=== PATIENT | female | born 1990 | race Caucasian/White ===

== ENCOUNTER 2017-08-22 07:05 | Day surgery (SDC) | payer OTHER ==
[2017-08-22] MEDS ORDERED: Ringers Lactate 1,000 ML IV ONE (07:24)
[2017-08-22] MEDS ORDERED: MIDAZOLAM HCL 2 MG/2 ML INJ ONE (08:35)
[2017-08-22] MEDS ORDERED: PROPOFOL 200 MG/20 ML VIAL IV ONE (08:46)
--- NOTE | 2017-08-22 09:05 | ENDO RPT ---
[address], [address] EGD PROCEDURE REPORT EXAM DATE: 08/22/2017 PATIENT NAME: Chantelle Ayala MR#: [id number] BIRTHDATE: 1990 ATTENDING: Joaquin Tian Dr STATUS: outpatient OPTIMIZATION ENGINEER: Robyn Bravo RN and Nona Gutierres INDICATIONS: The patient is a 26 yr old Female here for an EGD due to mid epigastric abdominal pain, nausea and vomiting, and GERD PROCEDURE PERFORMED: EGD with biopsy MEDICATIONS: Per Anesthesia. TOPICAL ANESTHETIC: none CONSENT: The patient understands the risks and benefits of the procedure and understands that these risks include, but are not limited to: sedation, allergic reaction, infection, perforation and/or bleeding. Alternative means of evaluation and treatment include, among others: physical exam, x-rays, and/or surgical intervention. The patient elects to proceed with this endoscopic procedure. DESCRIPTION OF PROCEDURE: During intra-op preparation period all mechanical medical equipment was checked for proper function. Hand hygiene and appropriate measures for infection prevention was taken. Procedure, possible complications, and alternatives including but not limited to the possibility of bleeding, perforation, tear, infection, sepsis, need for surgery, need for blood transfusion, and anesthesia related complications were explained to the patient. After the risks, benefits and alternatives of the procedure were thoroughly explained, Informed consent was verified, confirmed and timeout was successfully executed by the treatment team. The patient was placed in the left lateral position. The patient was anesthetized with topical anesthesia. Through the anesthetized oropharyngeal area, the scope was passed without any difficulty. The EG-[id number] ([id number]) endoscope was introduced through the mouth and advanced to the third portion of the duodenum. Retroflexed views revealed a small hiatal hernia. The gastroscope was then slowly withdrawn and removed. LA Class A esophagitis was found in the lower esophagus. A small hiatal hernia was found. Gastric biopsies obtained for non-ulcer dyspepsia. Small bowel biopsies obtained. ADVERSE EVENTS: There were no complications. IMPRESSIONS: 1. LA Class A esophagitis in the lower esophagus 2. Small slliding hiatal hernia 3. Gastric biopsies obtained for non-ulcer dyspepsia 4. Small bowel biopsies obtained RECOMMENDATIONS: 1. await biopsy results 2. acid suppression therapy 3. abdominal ultrasound 4. HIDA scan 5. check labs REPEAT EXAM: Joaquin Tian Dr eSigned: Joaquin Tian Dr 08/22/2017 9:05 AM cc: CPT CODES: ICD9 CODES: PATIENT NAME: Chantelle AyalaMateo MR#: [id number]
[2017-08-22 09:35] LABS: Absolute Monocytes 0.4 K/uL (0.1-1.3); Absolute Neutrophil 4.1 K/uL (1.8-8.0); Basophils % 0.3 % (0-1.3); Eosinophils % 3.4 % (0-4.4); Hematocrit 39.2 % (36.0-45.0); Lymphocytes % 29.8 % (15.3-44.8); MCV 89.4 fL (80-100); MPV 7.5 fL (7.6-11.3); Monocytes % 6.3 % (3.3-12.3); RBC Red Blood Cell Count 4.39 M/uL (3.86-4.86)
[2017-08-22 09:52] LABS: Bicarbonate 25 mEq/L (21-31); Glucose Level 102 mg/dL (65-120); Potassium 3.7 mEq/L (3.6-5.0); Sodium Level 136 mEq/L (135-145)
[2017-08-22 09:56] LABS: ALT/SGPT 21 IU/L (10-60); AST/SGOT 20 IU/L (10-42); Alkaline Phosphatase 77 IU/L (42-121); Amylase Level 72 U/L (28-100); BUN Blood Urea Nitrogen 11 mg/dL (6-20); Bilirubin Total 0.8 mg/dL (0.3-1.2); Protein, Total 7.3 g/dL (6.0-8.3)
[2017-08-22 10:17] LABS: Lipase 34 U/L (22-51)
--- NOTE | 2017-08-22 11:01 | RAD REPORT ---
EXAM DESCRIPTION: US - Abdomen Exam Complete - 08/22/2017 9:57 am CLINICAL HISTORY: Abdominal pain. COMPARISON: None. FINDINGS: The liver is normal in size, shape and echotexture. No focal liver lesions or intrahepatic biliary dilatation is seen. The gallbladder demonstrates no gallstones, pericholecystic fluid or gallbladder wall thickening. Co mmon bile duct is normal in caliber measuring 3 mm. Both kidneys are normal in size, shape and echotexture. No hydronephrosis, focal lesion of concern or perinephric fluid. The spleen is normal in size measuring 8 cm. The pancreas and aorta are obscured by bowel gas. IMPRESSION: Unremarkable study except for limited assessment of the pancreas and aorta due to bowel gas.
== END 2017-08-22 10:15 | disposition home or self-care (01) ==
LOC: ENDO 07:05
PROVIDERS: ATTEND Internal Medicine Gastroenterology
PROC: 0DB88ZX Excision of Small Intestine, Via Natural or Artificial Opening Endoscopic, Diagnostic (ICD-10-PCS; 2017-08-22)
PROC: 0DB68ZX Excision of Stomach, Via Natural or Artificial Opening Endoscopic, Diagnostic (ICD-10-PCS; principal; 2017-08-22 08:30)
DX: K29.50 Unspecified chronic gastritis without bleeding (principal); K21.0 Gastro-esophageal reflux disease with esophagitis; K44.9 Diaphragmatic hernia without obstruction or gangrene; Z80.3 Family history of malignant neoplasm of breast; Z80.1 Family history of malignant neoplasm of trachea, bronchus and lung
CPT/HCPCS: 36415; 76700; 80053; 81025; 82150; 83690; 85025; 85652; 88305; 88312; J2250

== ENCOUNTER 2017-09-10 00:28 | Emergency (ER) | payer OTHER ==
[2017-09-10] MEDS ORDERED: NA CHLORIDE 0.9% 1,000 ML ONE ×2 (00:58→04:35)
[2017-09-10] MEDS ORDERED: MEPERIDINE HCL 50 MG/ML AMP ONE (00:58)
[2017-09-10] MEDS ORDERED: PROMETHAZINE 25 MG/ML VIAL ONE (00:58)
[2017-09-10 01:06] LABS: Absolute Lymphocytes (CBC) 3.4 K/uL (0.7-4.9); Absolute Monocytes 0.8 K/uL (0.1-1.3); Absolute Neutrophil 4.6 K/uL (1.8-8.0); Basophils % 0.5 % (0-1.3); Hematocrit 40.2 % (36.0-45.0); Lymphocytes % 37.5 % (15.3-44.8); MCH 29.9 pg (27.0-35.0); MCV 89.1 fL (80-100); MPV 7.7 fL (7.6-11.3); Monocytes % 8.3 % (3.3-12.3); RBC Red Blood Cell Count 4.51 M/uL (3.86-4.86)
[2017-09-10 01:13] LABS: Bicarbonate 25 mEq/L (21-31); Glucose Level 100 mg/dL (65-120); Lipase 40 U/L (22-51); Potassium 3.5 mEq/L (3.6-5.0); Sodium Level 138 mEq/L (135-145)
[2017-09-10 01:19] LABS: ALT/SGPT 22 IU/L (10-60); AST/SGOT 24 IU/L (10-42); Albumin 4.1 g/dL (3.2-5.5); Alkaline Phosphatase 76 IU/L (42-121); Amylase Level 70 U/L (28-100); BUN Blood Urea Nitrogen 10 mg/dL (6-20); Bilirubin Direct 0.1 mg/dL (0-0.2); Bilirubin Total 0.3 mg/dL (0.3-1.2); Protein, Total 7.7 g/dL (6.0-8.3)
[2017-09-10 02:04] LABS: Urine Amorphous Sediment 3+ /HPF (NONE SEEN); Urine Bacteria 20-50 /HPF (<20); Urine Culture Reflex Order REFLEXED; Urine RBC <5 /HPF (NONE SEEN)
[2017-09-10 02:28] LABS: Urine Blood NEGATIVE (NEG); Urine Glucose NEGATIVE (NEG); Urine Protein 1+ (NEG); Urine Specific Gravity 1.025 (1.005-1.030); Urine pH 7.5 (5.0-7.0)
--- NOTE | 2017-09-10 05:54 | EDPHYS ---
Physician Documentation [facility] Name: Chantelle Rojas Age: 26 yrs Sex: Female : 1990 Arrival Date: 09/10/2017 Time: 00:29 Bed 7 Private MD: ED Physician Wilbert Bloom HPI: 09/10 01:11 This 26 yrs old Female presents to ER via Ambulatory with complaints of pkl Abdominal Pain. 01:11 The patient presents with abdominal pain in the upper abdomen. Onset: The pkl symptoms/episode began/occurred just prior to arrival, 1 hour(s) ago. The symptoms radiate to back. Associated signs and symptoms: Pertinent positives: nausea and vomiting. Historical: - Allergies: 00:41 No Known Allergies; tl2 - Home Meds: 00:41 Depo-Provera IM [Active]; tl2 - PMHx: 00:41 gastritis; esophagitis; tl2 - Immunization history:: Adult Immunizations up to date. - Social history:: Smoking status: Patient/guardian denies using tobacco. - Ebola Screening: : No symptoms or risks identified at this time. ROS: 01:11 Eyes: Negative for injury, pain, redness, and discharge, ENT: Negative for injury, pkl pain, and discharge, Neck: Negative for injury, pain, and swelling, Cardiovascular: Negative for chest pain, palpitations, and edema, Respiratory: Negative for shortness of breath, cough, wheezing, and pleuritic chest pain. 01:11 Abdomen/GI: Positive for abdominal pain, nausea and vomiting, of the right upper quadrant and left upper quadrant. 01:11 Back: Positive for pain at rest. 01:11 : Negative for urinary symptoms. 01:11 MS/extremity: Negative for acute changes. 01:11 Skin: Negative for rash. 01:11 Neuro: Negative for altered mental status. Exam: 01:11 Head/Face: Normocephalic, atraumatic. Eyes: Pupils equal round and reactive to light, pkl extra-ocular motions intact. Lids and lashes normal. Conjunctiva and sclera are non-icteric and not injected. Cornea within normal limits. Periorbital areas with no swelling, redness, or edema. ENT: Nares patent. No nasal discharge, no septal abnormalities noted. Tympanic membranes are normal and external auditory canals are clear. Oropharynx with no redness, swelling, or masses, exudates, or evidence of obstruction, uvula midline. Mucous membranes moist. Neck: Trachea midline, no thyromegaly or masses palpated, and no cervical lymphadenopathy. Supple, full range of motion without nuchal rigidity, or vertebral point tenderness. No Meningismus. Chest/axilla: Normal chest wall appearance and motion. Nontender with no deformity. No lesions are appreciated. Cardiovascular: Regular rate and rhythm with a normal S1 and S2. No gallops, murmurs, or rubs. Normal PMI, no JVD. No pulse deficits. Respiratory: Lungs have equal breath sounds bilaterally, clear to auscultation and percussion. No rales, rhonchi or wheezes noted. No increased work of breathing, no retractions or nasal flaring. 01:11 Abdomen/GI: Bowel sounds: normal, Palpation: soft, mild abdominal tenderness, in the right upper quadrant and left upper quadrant. 01:11 Back: Exam negative for acute changes. 01:11 : Exam negative for acute changes. 01:11 Musculoskeletal/extremity: Exam is negative for acute changes. 01:11 Skin: Exam negative for rash. 01:11 Neuro: Orientation: is normal, Mentation: is normal, Cranial nerves: grossly normal, Motor: is normal. Vital Signs: 00:41 BP 125 / 75; Pulse 111; Resp 20; Temp 98.4; Pulse Ox 100% on R/A; Weight 72.57 kg; tl2 Height 5 ft. 5 in. (165.10 cm); Pain 9/10; 00:44 BP 125 / 91; Pulse 109; Resp 20; Pulse Ox 99% on R/A; mt 01:50 BP 119 / 84; Pulse 111; Resp 20; Pulse Ox 100% on R/A; mt 02:56 BP 95 / 67; Pulse 84; Resp 18; Pulse Ox 98% on R/A; tl2 04:29 BP 87 / 53; Pulse 98; Resp 18; Pulse Ox 98% on R/A; tl1 05:05 BP 87 / 58; Pulse 89; Resp 18; Pulse Ox 99% on R/A; mt 05:39 BP 90 / 59; Pulse 99; Resp 18; Pulse Ox 99% on R/A; tl1 06:36 BP 99 / 56; Pulse 88; Resp 18; Pulse Ox 97% on R/A; tl2 00:41 Body Mass Index 26.63 (72.57 kg, 165.10 cm) tl2 MDM: 00:31 Patient medically screened. pkl 05:53 Data reviewed: vital signs, nurses notes, lab test result(s), radiologic studies, CT pkl scan. 09/10 00:45 Order name: Amylase, Serum; Complete Time: 01:35 mt 09/10 00:45 Order name: Basic Metabolic Panel; Complete Time: 01:35 mt 09/10 00:45 Order name: CBC with Diff; Complete Time: 01:09 mt 09/10 00:45 Order name: Hepatic Function; Complete Time: 01:35 mt 09/10 00:45 Order name: Lipase; Complete Time: 01:35 mt 09/10 00:45 Order name: Urine Microscopic Only; Complete Time: 03:42 mt 09/10 01:11 Order name: CT Abd/Pelvis - W/Contrast pkl 09/10 01:54 Order name: Urine Dipstick--Ancillary (enter results); Complete Time: 03:42 rg2 09/10 01:54 Order name: Urine --Ancillary (enter results); Complete Time: 03:42 rg2 09/10 02:05 Order name: Urine Culture EDMS 09/10 00:45 Order name: IV Saline Lock; Complete Time: 00:45 mt 09/10 00:45 Order name: Labs collected and sent; Complete Time: 00:45 mt 09/10 00:45 Order name: Urine Dipstick-Ancillary (obtain specimen); Complete Time: 02:56 mt 09/10 00:45 Order name: Urine Test (obtain specimen); Complete Time: 01:53 mt Administered Medications: 01:10 Drug: NS 0.9% 1000 ml Route: IV; Rate: 1000 ml; Site: left antecubital; tl2 07:04 Follow up: IV Status: Completed infusion; IV Intake: 1000ml tl2 01:10 Drug: Demerol 50 mg Route: IVP; Site: left antecubital; tl2 02:00 Follow up: Response: No adverse reaction; Pain is decreased tl2 01:10 Drug: Phenergan 12.5 mg Route: IVP; Site: left antecubital; tl2 02:00 Follow up: Response: No adverse reaction; Nausea is decreased tl2 Disposition: 09/10/17 05:53 Discharged to Home. Impression: Abdominal pain. - Condition is Stable. - Work release form, Medication Reconciliation Form, Thank You Letter, Antibiotic Education, Prescription Opioid Use form. - Follow up: Joaquin Tian MD; When: 2 - 3 days; Reason: Re-evaluation by your physician. - Problem is new. - Symptoms have improved. Signatures: Dispatcher [employer] [facility] Wilbert Bloom MD MD pkl Sherrie Granado RN RN tl2 Alejandra Mirza nd Corrections: (The following items were deleted from the chart) 01:34 00:45 Creatinine for Radiology+C.LAB.BRZ ordered. [facility] EDLA 07:05 05:53 09/10/2017 05:53 Discharged to Home. Impression: Abdominal pain. Condition is tl2 Stable. Forms are Medication Reconciliation Form, Thank You Letter, Antibiotic Education, Prescription Opioid Use. Follow up: Joaquin Tian; When: 2 - 3 days; Reason: Re-evaluation by your physician. Problem is new. Symptoms have improved. pkl
--- NOTE | 2017-09-10 05:54 | ER ---
Nurse's Notes [facility] Name: Chantelle Rojas Age: 26 yrs Sex: Female : 1990 Arrival Date: 09/10/2017 Time: 00:29 Bed 7 Private MD: Diagnosis: Abdominal pain Presentation: 09/10 00:40 Presenting complaint: Patient states: Woke up with upper abdominal pain that shoots to tl2 my back. Reports nausea, denies vomiting. Transition of care: patient was not received from another setting of care. Onset of symptoms was September 09, 2017 at 23:30. Risk Assessment: Do you want to hurt yourself or someone else? Patient reports no desire to harm self or others. Initial Sepsis Screen: Does the patient meet any 2 criteria? No. Patient's initial sepsis screen is negative. Does the patient have a suspected source of infection? No. Patient's initial sepsis screen is negative. Care prior to arrival: None. 00:40 Method Of Arrival: Ambulatory tl2 00:40 Acuity: DIOMEDES 3 tl2 Triage Assessment: 00:41 General: Appears in no apparent distress. uncomfortable, Behavior is calm, cooperative, tl2 appropriate for age. Pain: Complains of pain in epigastric area, right upper quadrant and left upper quadrant Pain radiates to mid back Pain currently is 9 out of 10 on a pain scale. Quality of pain is described as sharp, stabbing. Neuro: Level of Consciousness is awake, alert, obeys commands, Oriented to person, place, time, situation. Cardiovascular: Denies chest pain. Respiratory: Airway is patent Respiratory effort is even, unlabored, Respiratory pattern is regular, symmetrical. GI: Abdomen is non-distended, Reports nausea, Patient currently denies vomiting. : No signs and/or symptoms were reported regarding the genitourinary system. Derm: Skin is pink, warm \T\ dry. Historical: - Allergies: 00:41 No Known Allergies; tl2 - Home Meds: 00:41 Depo-Provera IM [Active]; tl2 - PMHx: 00:41 gastritis; esophagitis; tl2 - Immunization history:: Adult Immunizations up to date. - Social history:: Smoking status: Patient/guardian denies using tobacco. - Ebola Screening: : No symptoms or risks identified at this time. Screenin:44 Abuse screen: Denies threats or abuse. Nutritional screening: No deficits noted. tl2 Tuberculosis screening: No symptoms or risk factors identified. Fall Risk None identified. Assessment: 00:44 General: see triage assessment. tl2 04:37 Reassessment: Patient appears in no apparent distress at this time. Patient and/or tl1 family updated on plan of care and expected duration. Pain level reassessed. Patient is alert, oriented x 3, equal unlabored respirations, skin warm/dry/pink. MD notified of decreased BP, new orders see MAR Patient states feeling better. 06:09 Reassessment: Pt will not have a ride home until 0700. tl1 07:02 Reassessment: Patient appears in no apparent distress at this time. Patient and/or tl2 family updated on plan of care and expected duration. Pain level reassessed. Patient is alert, oriented x 3, equal unlabored respirations, skin warm/dry/pink. Pt verbalized understanding of discharge instructions, need for follow up Patient states feeling better. Vital Signs: 00:41 BP 125 / 75; Pulse 111; Resp 20; Temp 98.4; Pulse Ox 100% on R/A; Weight 72.57 kg; tl2 Height 5 ft. 5 in. (165.10 cm); Pain 9/10; 00:44 BP 125 / 91; Pulse 109; Resp 20; Pulse Ox 99% on R/A; mt 01:50 BP 119 / 84; Pulse 111; Resp 20; Pulse Ox 100% on R/A; mt 02:56 BP 95 / 67; Pulse 84; Resp 18; Pulse Ox 98% on R/A; tl2 04:29 BP 87 / 53; Pulse 98; Resp 18; Pulse Ox 98% on R/A; tl1 05:05 BP 87 / 58; Pulse 89; Resp 18; Pulse Ox 99% on R/A; mt 05:39 BP 90 / 59; Pulse 99; Resp 18; Pulse Ox 99% on R/A; tl1 06:36 BP 99 / 56; Pulse 88; Resp 18; Pulse Ox 97% on R/A; tl2 00:41 Body Mass Index 26.63 (72.57 kg, 165.10 cm) tl2 ED Course: 00:29 Patient arrived in ED. ds1 00:31 Wilbert Bloom MD is Attending Physician. pkl 00:41 Triage completed. tl2 00:41 Arm band placed on right wrist. tl2 00:44 Patient has correct armband on for positive identification. Placed in gown. Bed in low tl2 position. Call light in reach. Side rails up X 1. 00:44 Inserted saline lock: 22 gauge in left antecubital area, using aseptic technique. Blood tl2 collected. placed by graham Roberts. 03:12 Che Davis, RN is Primary Nurse. tl1 04:08 CT Abd/Pelvis - W/Contrast In Process Unspecified. EDMS 04:17 CT completed. Patient tolerated procedure well. Patient moved to CT via wheelchair. Patient moved back from CT. 05:53 Joaquin Tian MD is Referral Physician. pkl 07:02 No provider procedures requiring assistance completed. IV discontinued, intact, tl2 bleeding controlled, No redness/swelling at site. Pressure dressing applied. Administered Medications: 01:10 Drug: NS 0.9% 1000 ml Route: IV; Rate: 1000 ml; Site: left antecubital; tl2 07:04 Follow up: IV Status: Completed infusion; IV Intake: 1000ml tl2 01:10 Drug: Demerol 50 mg Route: IVP; Site: left antecubital; tl2 02:00 Follow up: Response: No adverse reaction; Pain is decreased tl2 01:10 Drug: Phenergan 12.5 mg Route: IVP; Site: left antecubital; tl2 02:00 Follow up: Response: No adverse reaction; Nausea is decreased tl2 Intake: 07:04 IV: 1000ml; Total: 1000ml. tl2 Outcome: 05:53 Discharge ordered by . pkl 07:02 Discharged to home ambulatory, with friend. tl2 07:02 Condition: stable 07:02 Discharge instructions given to patient, Instructed on discharge instructions, follow up and referral plans. Demonstrated understanding of instructions, follow-up care. 07:05 Patient left the ED. tl2 Signatures: Dispatcher [employer] EDWilbert Nunez MD MD pkl Hagler, Ervin Kaity Rose ds1 Che Davis, RN RN tl1 Sherrie Granado RN RN tl2 Alejandra Mirza or
--- NOTE | 2017-09-10 09:49 | RAD REPORT ---
EXAM DESCRIPTION: CT - Abdomen Pelvis W Contrast - 09/10/2017 4:36 am CLINICAL HISTORY: Abdominal pain. Nausea and vomiting. Epigastric pain. COMPARISON: None. TECHNIQUE: Computed axial tomography of the abdomen and pelvis was obtained. 100 cc Isovue-300 is ad ministered intravenously. Oral contrast was given. A preliminary report was generated by [facility] and reviewed prior to this dictation All CT scans are performed using dose optimization technique as appropriate and may include automated exposure control or mA/KV adjustment according to patient size. FINDINGS: The liver, spleen, pancreas, adrenals and kidneys appear unremarkable. The appendix is normal caliber. There is no evidence of diverticulitis A tiny umbilical hernia is present. IMPRESSION: No acute abnormality is displayed
== END 2017-09-10 07:05 | disposition home or self-care (01) ==
LOC: ER 00:28
DX: R10.10 Upper abdominal pain, unspecified (principal)
CPT/HCPCS: 74177; 80048; 80076; 81003; 81015; 81025; 82150; 83690; 85025; 87086; 87088; 96361; 96374; 96375; 99284; J2175; J2550; J7030; Q9967

== ENCOUNTER 2017-10-03 04:06 | Emergency (ER) | payer OTHER ==
--- OUTSIDE RECORDS SUMMARY | 2017-10-03 04:08 | XMS REPORT | Summary of Care ---
:1990 Author Organization [facility] Address [address] [place] [id number] Encounter [facility] Leon(KRISTIN) [id number] Date(s): 05/07/15 - 05/08/[address] Professional Services provided by [facility] [place] [address]- Discharge Diagnosis: Acute neck pain Discharge Disposition: Home Attending Physician: Agapito Ibrahim MD Admitting Physician: Agapito Ibrahim MD Referring Physician: Ekaterina Garcia MD Vital Signs Most recent to oldest 1 2 3 [Reference Range]: Height 165.1 cm (05/07/15 8:11 PM) Blood Pressure [90-140/60-90 124/82 mmHg 99/55 mmHg 96/53 mmHg mmHg] (05/07/15 11:16 PM) (05/07/15 11:00 PM) (05/07/15 10:45 PM) Respiratory Rate [14-20 BRMIN] 18 BRMIN (05/07/15 8:11 PM) Peripheral Pulse Rate [60-100 82 bpm 94 bpm 85 bpm bpm] (05/07/15 11:16 PM) (05/07/15 11:00 PM) (05/07/15 10:45 PM) Weight 60.455 kg (05/07/15 8:11 PM) Body Mass Index 22.18 m2 (05/07/15 8:11 PM) Problem List No data available for this section Allergies, Adverse Reactions, Alerts Substance Reaction Severity Status NKDA Active Medications Flexeril 5 mg, Route: PO, ONCE, Dosing Weight 60.455, kg, Priority: STAT, Start date: 08/15 23:55:00, Stopdate: 05/07/15 23:55:00 Start Date: 05/07/15 Stop Date: 05/08/15 Status: CompletedFlexeril 10 mg oral tablet 10 mg, PO, TID, PRN Muscle Spasm, X 10 day, # 20 tab, 0 Refill(s) Start Date: 05/07/15 Stop Date: 05/17/15 Status: Orderedibuprofen 800 mg, Route: PO, Drug form: TAB, ONCE, Dosing Weight 60.455, kg, Priority: STAT, Start date: 05/07/15 23:55:00, Stop date: 05/07/15 23:55:00 Start Date: 05/07/15 Stop Date: 05/08/15 Status: Completedmorphine Sulfate 6 mg, Route: IVP, Drug form: INJ, ONCE, Dosing Weight 60.455, kg, Priority: STAT , Start date: 05/07/15 20:27:00, Stop date: 05/07/15 20:27:00 Start Date: 05/07/15 Stop Date: 05/07/15 Status: CompletedNorco 5/325 oral tablet 1 tab, Route: PO, Drug Form: TAB, Dosing Weight 60.455, kg, ONCE, STAT, Start date: 05/07/15 23:19:00, Stop date: 05/07/15 23:19:00 Notes: (Same as: [place] 325/5) Do not exceed 4gm/day of acetaminophen. Start Date: 05/07/15 Stop Date: 05/07/15 Status: CompletedZofran 4 mg, Route: IVP, Drug form: INJ, ONCE, Dosing Weight 60.455, kg, Priority: STAT , Start date: 05/07/15 20:27:00, Stop date: 05/07/15 20:27:00 Start Date: 05/07/15 Stop Date: 05/07/15 Status: Completed Results No data available for this section Immunizations No data available for this section Procedures No data available for this section Social History Social History Type Response Smoking Status Never smoker; Exposure to Tobacco Smoke None; Cigarette Smoking Last 365 Days No; Reg Smoking Cessation Counseling No Assessment and Plan No data available for this section
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
[2017-10-03] MEDS ORDERED: LIDOCAINE VISCOUS 2% SOLN 15 ML UDC ONE (04:19)
[2017-10-03] MEDS ORDERED: ONDANSETRON 4 MG/2 ML VIAL ONE ×2 (04:19→07:18)
[2017-10-03] MEDS ORDERED: MAGNE/ALUM HYDROXD 30 ML UCUP ONE (04:19)
[2017-10-03 04:24] LABS: Absolute Lymphocytes (CBC) 3.4 K/uL (0.7-4.9); Absolute Monocytes 0.7 K/uL (0.1-1.3); Absolute Neutrophil 5.4 K/uL (1.8-8.0); Basophils % 0.6 % (0-1.3); Hematocrit 40.7 % (36.0-45.0); Lymphocytes % 34.5 % (15.3-44.8); MCH 29.6 pg (27.0-35.0); MCV 89.6 fL (80-100); MPV 7.8 fL (7.6-11.3); Monocytes % 6.8 % (3.3-12.3); RBC Red Blood Cell Count 4.55 M/uL (3.86-4.86)
[2017-10-03] MEDS ORDERED: NA CHLORIDE 0.9% 1,000 ML ONE (04:32)
[2017-10-03] MEDS ORDERED: MORPHINE 4 MG/ML SYR ONE (04:35)
[2017-10-03 05:01] LABS: Albumin 3.8 g/dL (3.4-5.0); Bilirubin Direct 0.1 mg/dL (0-0.2); Bilirubin Total 0.3 mg/dL (0.2-1.0); Potassium 3.6 mmol/L (3.5-5.1)
[2017-10-03 05:21] LABS: Urine Specific Gravity >1.030 (1.005-1.030)
[2017-10-03 05:23] LABS: Urine Blood TRACE (NEG); Urine Glucose NEGATIVE (NEG); Urine Protein TRACE (NEG); Urine Specific Gravity >1.030 (1.005-1.030); Urine pH 5.5 (5.0-7.0)
[2017-10-03] MEDS ORDERED: FENTANYL CITR 100 MCG/2 ML ONE ×2 (05:33→08:34)
[2017-10-03 05:40] LABS: Urine Bacteria 20-50 /HPF (<20); Urine Culture Reflex Order REFLEXED; Urine Mucus 3+ /HPF (NONE SEEN); Urine RBC <5 /HPF (NONE SEEN)
[2017-10-03] MEDS ORDERED: PANTOPRAZOLE 40 MG INJ ONE (06:19)
--- NOTE | 2017-10-03 06:44 | RAD REPORT ---
EXAM DESCRIPTION: CT - Abdomen Pelvis W Contrast - 10/03/2017 5:32 am CLINICAL HISTORY: Abdominal pain, history of gastritis A preliminary written report was provided at the time of the study. Final report issued prior to pre liminary findings issued. COMPARISON: None. TECHNIQUE: Biphasic, helical CT imaging of the abdomen and pelvis was performed following 100 ml non -ionic IV contrast. No oral contrast given. All CT scans are performed using dose optimization technique as appropriate and may include automated exposure control or mA/KV adjustment according to patient size. FINDINGS: No suspicious findings in the lung bases. The liver, spleen, and pancreas show no suspicious findings. Gallbladder and biliary tree are also wi thout suspicious finding. Symmetric renal function is seen with no hydronephrosis or suspicious renal mass. No pyelonephritis o r acute renal parenchymal process. Contracted urinary bladder shows no suspicious finding. Uterus and ovaries also without suspicious finding. No gastric dilatation or gastric wall thickening. No abnormality of the duodenum. No gastritis or duo denitis findings. A few mildly prominent mid abdominal small bowel loops are present. This is a minim al finding but could indicate enteritis. The appendix and colon show no suspicious findings. The nilda ent has a few small nonspecific mesenteric lymph nodes in the right lower quadrant. No free air, free fluid or inflammatory stranding. No hernia, mass or bulky lymphadenopathy. No adrenal abnormality. No suspicious bony findings. IMPRESSION: No gastritis, duodenitis or other acute upper abdominal findings. No surgically emergent finding. The appendix is normal. The patient has a few nonspecific mesenteric lymph nodes. A few minimally prominent small bowel loops in the mid abdomen could indicate a nonspecific enteritis . 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
--- NOTE | 2017-10-03 07:01 | ER ---
Nurse's Notes [facility] Name: Chantelle Rojas Age: 26 yrs Sex: Female : 1990 Arrival Date: 10/03/2017 Time: 04:08 Bed 5 Private MD: Diagnosis: Gastritis, unspecified Presentation: 10/03 04:00 Presenting complaint: Patient states: Upper abdominal pain that began 2 hours ago, lp1 radiating to back; Hx of gastritis, states nausea at this time. Transition of care: patient was not received from another setting of care. Onset of symptoms was October 03, 2017 at 02:30. Risk Assessment: Do you want to hurt yourself or someone else? Patient reports no desire to harm self or others. Initial Sepsis Screen: Does the patient meet any 2 criteria? No. Patient's initial sepsis screen is negative. Does the patient have a suspected source of infection? No. Patient's initial sepsis screen is negative. Care prior to arrival: None. 04:00 Method Of Arrival: Ambulatory lp1 04:00 Acuity: DIOMEDES 3 lp1 [facility] HOME LOCATION MANAGER: 04:27 LMP N/A - Depo-provera lp1 Historical: - Allergies: 04:25 No Known Allergies; lp1 - Home Meds: 04:25 Depo-Provera IM [Active]; Omeprazole Oral [Active]; lp1 - PMHx: 04:25 Esophagitis; gastritis; hiatal hernia; lp1 - PSHx: 04:25 None; lp1 - Immunization history:: Adult Immunizations up to date. - Social history:: Smoking status: Patient/guardian denies using tobacco. - Ebola Screening: : No symptoms or risks identified at this time. Screenin:27 Abuse screen: Denies threats or abuse. Denies injuries from another. Nutritional lp1 screening: No deficits noted. Tuberculosis screening: No symptoms or risk factors identified. Fall Risk None identified. Assessment: 04:26 General: Appears uncomfortable, Behavior is appropriate for age. Pain: Complains of lp1 pain in epigastric area Pain radiates to back Pain currently is 7 out of 10 on a pain scale. Quality of pain is described as sharp, shooting, stabbing. Neuro: Level of Consciousness is awake, alert, obeys commands. Cardiovascular: Patient's skin is warm and dry. Respiratory: Respiratory effort is even, unlabored. GI: Abdomen is non-distended, Bowel sounds present X 4 quads. Abdomen is tender to palpation in epigastric area. : No signs and/or symptoms were reported regarding the genitourinary system. EENT: No signs and/or symptoms were reported regarding the EENT system. Derm: Skin is pink, warm \T\ dry. Musculoskeletal: Circulation, motion, and sensation intact. 05:30 Reassessment: Patient returned from CT; Patient states pain unchanged, Provider lp1 notified; verbal order to give Fentanyl 25mcg IV. 06:30 Reassessment: Patient appears in no apparent distress at this time. Patient and/or lp1 family updated on plan of care and expected duration. Pain level reassessed. Patient is alert, oriented x 3, equal unlabored respirations, skin warm/dry/pink. 07:46 Reassessment: Patient appears in no apparent distress at this time. Patient and/or sg family updated on plan of care and expected duration. Pain level reassessed. Patient is alert, oriented x 3, equal unlabored respirations, skin warm/dry/pink. reports nausea, pt has been medicated, will reassess Patient states symptoms have not improved. Vital Signs: 04:16 BP 119 / 79; Pulse 97; Resp 18; Temp 98.1; Pulse Ox 99% on R/A; Pain 7/10; ak1 04:39 Weight 74.84 kg; Height 5 ft. 5 in. (165.10 cm); lp1 04:39 BP 114 / 87; Pulse 98; Resp 18; Pulse Ox 100% on R/A; lp1 05:58 BP 111 / 73; Pulse 83; Resp 16; Pulse Ox 99% on R/A; lp1 07:01 BP 107 / 56; Pulse 85; Resp 16; Pulse Ox 100% on R/A; lp1 04:39 Body Mass Index 27.46 (74.84 kg, 165.10 cm) lp1 ED Course: 04:05 Inserted saline lock: 20 gauge in right antecubital area, using aseptic technique. lp1 Blood collected. 04:08 Patient arrived in ED. al2 04:11 Julio Faye MD is Attending Physician. tw4 04:22 Ashli Sahni RN is Primary Nurse. lp1 04:24 Triage completed. lp1 04:24 Arm band placed on left wrist. lp1 04:28 Radiology exam delayed due to lab results not completed at this time. (BUN/Creatinine). kw1 04:28 Patient has correct armband on for positive identification. Placed in gown. Pulse ox lp1 on. NIBP on. 05:32 CT Abd/Pelvis - W/Contrast In Process Unspecified. EDMS 05:33 CT completed. Patient tolerated procedure well. Patient moved back from CT. kw1 05:58 No provider procedures requiring assistance completed. lp1 06:59 Julio Faye MD is Referral Physician. tw4 08:03 Awaiting: ultrasound. sg 08:54 Patient taken to ultrasound. via stretcher. lc3 09:30 Ultrasound completed. Patient tolerated well. Patient moved back from ultrasound. lc3 09:32 US Abdomen Limited In Process Unspecified. EDMS 09:50 IV discontinued, intact, bleeding controlled, No redness/swelling at site. Pressure sg dressing applied. Administered Medications: 04:27 Drug: GI Cocktail without - (Maalox Suspension 30 ml, Lidocaine Liquid 2 % 15 lp1 ml) Route: PO; 04:39 Follow up: Response: Pain is unchanged, physician notified lp1 04:27 Drug: Zofran 4 mg Route: IVP; Site: right antecubital; lp1 05:30 Follow up: Response: Nausea is decreased lp1 04:38 Drug: NS 0.9% 1000 ml Route: IV; Rate: 1 bolus; Site: right antecubital; lp1 07:02 Follow up: IV Status: Completed infusion; IV Intake: 1000ml lp1 04:38 Drug: morphine 4 mg Route: IVP; Site: right antecubital; lp1 05:30 Follow up: Response: Pain is unchanged, physician notified lp1 05:33 Drug: fentaNYL (PF) 25 mcg Route: IVP; Site: right antecubital; lp1 06:21 Follow up: Response: Pain is decreased lp1 06:21 Drug: ProTONIX 40 mg Route: IVP; Site: right antecubital; lp1 07:02 Follow up: Response: No adverse reaction lp1 07:19 Drug: Zofran 4 mg Route: IVP; Site: right antecubital; ph 08:40 Drug: fentaNYL (PF) 25 mcg Route: IVP; Site: right antecubital; sg Intake: 07:02 IV: 1000ml; Total: 1000ml. lp1 Outcome: 07:00 Discharge ordered by . tw4 09:50 Discharged to home ambulatory, with family. sg 09:50 Condition: good 09:50 Discharge instructions given to patient, Instructed on discharge instructions, follow up and referral plans. medication usage, safety practices, Demonstrated understanding of instructions, follow-up care, instructed on zantac OTC, the prescription for protonix has been voided per , the pt is DC to home with no prescriptions at this time. 09:53 Patient left the ED. sg Signatures: Dispatcher [employer] EDMS Chuy Rios RN RN sg Ashli Sahni RN RN lp1 Summer Salgado RN RN Madison Molina RN RN Sushant, Karly Alvarez1 Kae Love Terrence, MD MD tw4 Corrections: (The following items were deleted from the chart) 04:22 04:22 Inserted saline lock: 20 gauge in right antecubital area, using aseptic lp1 technique. Blood collected. lp1 05:58 05:30 Reassessment: Patient states pain unchanged, Provider notified; verbal order to lp1 give Fentanyl 25mcg IV lp1
--- NOTE | 2017-10-03 07:01 | EDPHYS ---
Physician Documentation [facility] Name: Chantelle Rojas Age: 26 yrs Sex: Female : 1990 Arrival Date: 10/03/2017 Time: 04:08 Bed 5 Private MD: ED Physician Julio Faye HPI: 10/03 06:10 This 26 yrs old Female presents to ER via Ambulatory with complaints of tw4 Abdominal Pain. 06:10 The patient presents with abdominal pain. Onset: The symptoms/episode began/occurred tw4 today. The symptoms do not radiate. Associated signs and symptoms: none. The symptoms are described as dull. Modifying factors: The symptoms are alleviated by nothing, the symptoms are aggravated by nothing. The patient has not experienced similar symptoms in the past. 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 - Social history:: Smoking status: Patient/guardian denies using tobacco. - Ebola Screening: : No symptoms or risks identified at this time. ROS: 06:10 Constitutional: Negative for fever, chills, and weight loss, Cardiovascular: Negative tw4 for chest pain, palpitations, and edema, Respiratory: Negative for shortness of breath, cough, wheezing, and pleuritic chest pain, Abdomen/GI: Negative for abdominal pain, nausea, vomiting, diarrhea, and constipation, Back: Negative for injury and pain. Exam: 06:10 Constitutional: This is a well developed, well nourished patient who is awake, alert, tw4 and in no acute distress. Head/Face: Normocephalic, atraumatic. Chest/axilla: Normal chest wall appearance and motion. Nontender with no deformity. No lesions are appreciated. Cardiovascular: Regular rate and rhythm with a normal S1 and S2. No gallops, murmurs, or rubs. Normal PMI, no JVD. No pulse deficits. Respiratory: Lungs have equal breath sounds bilaterally, clear to auscultation and percussion. No rales, rhonchi or wheezes noted. No increased work of breathing, no retractions or nasal flaring. Abdomen/GI: Soft, non-tender, with normal bowel sounds. No distension or tympany. No guarding or rebound. No evidence of tenderness throughout. Back: No spinal tenderness. No costovertebral tenderness. Full range of motion. Vital Signs: 04:16 BP 119 / 79; Pulse 97; Resp 18; Temp 98.1; Pulse Ox 99% on R/A; Pain 7/10; ak1 04:39 Weight 74.84 kg; Height 5 ft. 5 in. (165.10 cm); lp1 04:39 BP 114 / 87; Pulse 98; Resp 18; Pulse Ox 100% on R/A; lp1 05:58 BP 111 / 73; Pulse 83; Resp 16; Pulse Ox 99% on R/A; lp1 07:01 BP 107 / 56; Pulse 85; Resp 16; Pulse Ox 100% on R/A; lp1 04:39 Body Mass Index 27.46 (74.84 kg, 165.10 cm) lp1 MDM: 04:11 Patient medically screened. 10/03 04:09 Order name: Amylase, Serum; Complete Time: 06:13 10/03 04:09 Order name: Basic Metabolic Panel; Complete Time: 06:13 10/03 06:13 Interpretation: Normal except: CA 9.1; GFR 88; CL 108. 10/03 04:09 Order name: CBC with Diff; Complete Time: 06:13 10/03 04:09 Order name: Creatinine for Radiology; Complete Time: 06:13 10/03 04:09 Order name: Hepatic Function; Complete Time: 06:13 10/03 06:13 Interpretation: Normal except: GLOB 4.2; A/G 0.9. 10/03 04:09 Order name: Lipase; Complete Time: 06:13 10/03 04:09 Order name: Urine Microscopic Only; Complete Time: 06:13 10/03 06:13 Interpretation: Normal except: SQEPI 5-10; UBACT 20-50; UWBC 5-10; MUCUS 3+. 10/03 04:15 Order name: CT Abd/Pelvis - W/Contrast; Complete Time: 08:19 tw4 10/03 05:19 Order name: Urine Dipstick--Ancillary (enter results); Complete Time: 06:13 lp1 10/03 05:20 Order name: Test Urine - POC; Complete Time: 06:13 lp1 10/03 06:13 Interpretation: Normal except: USPGR >1.030. tw4 10/03 05:41 Order name: Urine Culture EDMS 10/03 06:13 Order name: US Abdomen Limited tw4 10/03 04:09 Order name: IV Saline Lock; Complete Time: 04:40 bb 10/03 04:09 Order name: Labs collected and sent; Complete Time: 04:40 bb 10/03 04:09 Order name: Urine Dipstick-Ancillary (obtain specimen); Complete Time: 05:18 bb Administered Medications: 04:27 Drug: GI Cocktail without - (Maalox Suspension 30 ml, Lidocaine Liquid 2 % 15 lp1 ml) Route: PO; 04:39 Follow up: Response: Pain is unchanged, physician notified lp1 04:27 Drug: Zofran 4 mg Route: IVP; Site: right antecubital; lp1 05:30 Follow up: Response: Nausea is decreased lp1 04:38 Drug: NS 0.9% 1000 ml Route: IV; Rate: 1 bolus; Site: right antecubital; lp1 07:02 Follow up: IV Status: Completed infusion; IV Intake: 1000ml lp1 04:38 Drug: morphine 4 mg Route: IVP; Site: right antecubital; lp1 05:30 Follow up: Response: Pain is unchanged, physician notified lp1 05:33 Drug: fentaNYL (PF) 25 mcg Route: IVP; Site: right antecubital; lp1 06:21 Follow up: Response: Pain is decreased lp1 06:21 Drug: ProTONIX 40 mg Route: IVP; Site: right antecubital; lp1 07:02 Follow up: Response: No adverse reaction lp1 07:19 Drug: Zofran 4 mg Route: IVP; Site: right antecubital; ph 08:40 Drug: fentaNYL (PF) 25 mcg Route: IVP; Site: right antecubital; sg Disposition: 10/03/17 07:00 Discharged to Home. Impression: Gastritis, unspecified. - Condition is Stable. - Discharge Instructions: Gastritis, Adult, [id number]. - Prescriptions for Protonix 40 mg Oral Tablet - take 1 tablet by ORAL route once daily; 30 tablet. - Medication Reconciliation Form, Thank You Letter, Antibiotic Education, Prescription Opioid Use form. - Follow up: Julio Faye MD; When: As needed; Reason: Recheck today's complaints, Re-evaluation by your physician. - Problem is new. - Symptoms have improved. Signatures: Dispatcher [employer] EDMS Chuy Rios RN RN sg Kimmy Maldonado RN RN bb Wilfredo Daniel MD MD rn Pena, Laura RN RN lp1 Madison Sprague RN RN Julio Faye MD MD tw4 Corrections: (The following items were deleted from the chart) 09:53 07:00 10/03/2017 07:00 Discharged to Home. Impression: Gastritis, unspecified. sg Condition is Stable. Forms are Medication Reconciliation Form, Thank You Letter, Antibiotic Education, Prescription Opioid Use. Follow up: Julio Faye; When: As needed; Reason: Recheck today's complaints, Re-evaluation by your physician. Problem is new. Symptoms have improved. tw4
--- NOTE | 2017-10-03 10:09 | RAD REPORT ---
EXAM DESCRIPTION: US - Abdomen Exam Limited - 10/03/2017 9:32 am CLINICAL HISTORY: Abdominal pain Preliminary findings provided at the time of the study. COMPARISON: CT study October 03 FINDINGS: Gallbladder size is normal. Multiple small sub centimeter gallstones are present layering in the dependent portion of the gallbladder. No wall thickening or pericholecystic fluid. Common bile duct is normal with no common duct stone identified. IMPRESSION: Multiple small mobile gallstones with no other gallbladder or biliary tree finding.
== END 2017-10-03 09:53 | disposition home or self-care (01) ==
LOC: ER 04:06
DX: K29.70 Gastritis, unspecified, without bleeding (principal)
CPT/HCPCS: 36415; 74177; 76705; 80048; 80076; 81003; 81015; 81025; 82150; 83690; 85025; 87086; 87088; 96361; 96374; 96375; 99284; C9113; J2405; J3010; J7030; Q9967

== ENCOUNTER 2017-12-17 07:14 | Day surgery (SDC) | payer OTHER ==
[2017-12-13 15:34] LABS: Absolute Lymphocytes (CBC) 2.1 K/uL (0.7-4.9); Absolute Monocytes 0.4 K/uL (0.1-1.3); Absolute Neutrophil 3.4 K/uL (1.8-8.0); Basophils % 0.5 % (0-1.3); Hematocrit 40.4 % (36.0-45.0); MCH 30.4 pg (27.0-35.0); MCV 89.6 fL (80-100); Monocytes % 6.8 % (3.3-12.3); RBC Red Blood Cell Count 4.51 M/uL (3.86-4.86)
[2017-12-13 15:41] LABS: BUN Blood Urea Nitrogen 11 mg/dL (7-18); Bicarbonate 28 mmol/L (21-32); Glucose Level 88 mg/dL (74-106); Potassium 3.7 mmol/L (3.5-5.1); Sodium Level 140 mmol/L (136-145)
[2017-12-13 16:22] LABS: Albumin 3.8 g/dL (3.4-5.0); Bilirubin Direct 0.2 mg/dL (0-0.2); Bilirubin Total 0.4 mg/dL (0.2-1.0); Protein, Total 7.9 g/dL (6.4-8.2)
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
[2017-12-17 07:26] LABS: Specific Gravity >= 1.030 (1.005-1.030)
[2017-12-17] MEDS ORDERED: Ringers Lactate 1,000 ML IV ONE (08:21)
[2017-12-17] MEDS ORDERED: FENTANYL CITR 100 MCG/2 ML ONE (08:31)
[2017-12-17] MEDS ORDERED: PROPOFOL 200 MG/20 ML VIAL IV ONE (08:31)
[2017-12-17] MEDS ORDERED: MIDAZOLAM HCL 2 MG/2 ML INJ ONE (08:31)
[2017-12-17] MEDS ORDERED: LIDOCAINE 2% MPF 5 ML VIAL ONE (08:32)
[2017-12-17] MEDS ORDERED: ONDANSETRON 4 MG/2 ML VIAL ONE ×2 (08:33→12:00)
[2017-12-17] MEDS ORDERED: ROCURONIUM 50 MG/5 ML VIAL IV ONE (08:33)
[2017-12-17] MEDS ORDERED: CEFOXITIN/SWI 1gm 1 GM/10 ML SYR ONE (08:48)
[2017-12-17] MEDS ORDERED: DEXAMETHASONE 10 MG/ML VIAL ONE (09:14)
[2017-12-17] MEDS ORDERED: KETOROLAC 30 MG/ML INJ ONE (09:32)
[2017-12-17] MEDS ORDERED: GLYCOPYRROLATE 0.2 MG/ML SYR ONE (09:32)
[2017-12-17] MEDS ORDERED: NEOSTIGMINE 1 MG/ML -5 ML SYRINGE ONE (09:33)
[2017-12-17] MEDS ORDERED: Mastisol Adhesive Liq ONE (09:33)
--- NOTE | 2017-12-17 09:41 | P.BOP ---
Preoperative diagnosis: acute cholecystitis,symptomatic cholelithiasis Postoperative diagnosis: same Primary procedure: Laparoscopic cholecystectomy Nuclear Physician: Heidy Leiva ([place]) Estimated blood loss: <10cc Specimen: gb Findings: as above Anesthesia: General Complications: None Transferred to: Recovery Room Condition: Good
[2017-12-17] MEDS ORDERED: MORPHINE 4 MG/ML SYR ONE (10:03)
[2017-12-17] MEDS ORDERED: PROMETHAZINE 25 MG/ML VIAL ONE (10:08)
[2017-12-17] MEDS: MEPERIDINE HCL 50 MG/ML AMP ONE ×2 (10:15→10:22)
[2017-12-17] MEDS ORDERED: MEPERIDINE HCL 50 MG/ML AMP ONE (10:36)
[2017-12-17] MEDS ORDERED: CODEINE 30MG/APAP 300MG TAB ONE (12:25)
--- NOTE | 2017-12-17 22:04 | OP ---
Date of Procedure: 12/17/2017 Surgeon: John Archuleta MD Gauge Controller: HENOK Abraham. Preoperative Diagnoses: Acute cholecystitis and symptomatic cholelithiasis. Postoperative Diagnoses: Acute cholecystitis and symptomatic cholelithiasis. Procedure: Laparoscopic cholecystectomy. Estimated Blood Loss: Less than 10 cc. Specimen: Gallbladder. Findings: As above. Anesthesia: General plus local. Indication: This is a case of a 27-year-old patient who comes to us with above diagnosis. Fully exp lained the benefits, alternatives, and risks of laparoscopic, possible open cholecystectomy, which in clude, but are not limited to infection, bleeding, damage to adjacent structures, anesthesia complica tions, cholelithiasis, bile leak, pancreatitis, myocardial infarction, and even . She also unde rstands this may not relieve any symptoms. She might need more than one surgical intervention. She understood and signed a consent. Description Of Procedure: The patient was brought to the operating room, placed in supine position. Anesthesia was done without complication. Abdominal area was prepped and draped in a sterile fashio n. Marcaine 0.5% was injected for local anesthetic, followed by sharp incision of skin in the infrau mbilical region. Incision was carried down to fascia, which was opened under direct vision. Periton eum was encountered, opened under direct vision. Vicryl #1 placed inside the fascia. Carrie trocar was carefully introduced. Pneumoperitoneum was obtained. After that, I placed 3 more trocars, 5 mm each one of them, one in the epigastric area and two in the right upper quadrant using same technique , which consisted of local anesthetic, sharp incision of the skin, and introduction of the trocars un william direct vision. This allowed me to put a grasper in the fundus of the gallbladder, another graspe r in the infundibulum, retracted the gallbladder in the inferolateral fashion exposing the triangle o f Calot and obtaining critical view of safety. The cystic duct and cystic artery were clearly isolat ed free circumferentially, and a connection between those and the gallbladder were clearly identified . I proceeded to ligate those by using at least 3 clips proximal, 1 clip distal, ligation in middle. Same was done with the cystic artery. No bile leak. No bleeding. The gallbladder was removed fro m liver using Bovie cauterizer and removed from abdominal cavity using an EndoCatch through the umbil ical incision. The area was inspected once again. Clips were intact. No bile leak. No bleeding. Gallbladder fossa with no bleeding. At that moment, I proceeded to remove the trocars under direct v ision. Deflated pneumoperitoneum. Closed the fascia with #1 Vicryl. Irrigated subcutaneous incisio n, closed that with 3-0 chromic, and skin in a subcuticular fashion with 3-0 chromic and Steri-Strips on top. Sponge count and instrument counts were correct. The patient tolerated the procedure well. The patient was sent to recovery in stable condition. Diagnosis: Acute cholecystitis and symptomatic cholelithiasis. Procedure: Laparoscopic cholecystectomy. Disposition: Home. Activity: As tolerated. No heavy lifting. Followup: Follow up in my office in 1 week. Call for appointment on [phone]. Keep the area dry fo r 48 hours, then may shower. Keep Steri-Strips intact. Medications: See orders. ARYAN/FLORES Voice ID: [id number] Report ID: [id number]
== END 2017-12-17 13:00 | disposition home or self-care (01) ==
LOC: OR 07:14
PROVIDERS: ATTEND Surgery
PROC: 0FT44ZZ Resection of Gallbladder, Percutaneous Endoscopic Approach (ICD-10-PCS; principal; 2017-12-17 08:30)
DX: K80.12 Calculus of gallbladder with acute and chronic cholecystitis without obstruction (principal); E66.9 Obesity, unspecified
CPT/HCPCS: 36415; 80048; 80076; 81025; 82150; 83690; 85025; 88304; J1100; J2175; J2250; J2405; J2550; J2710; J3010

== ENCOUNTER 2022-02-24 10:17 | Inpatient (IN) | payer BC, OTHER, SELFPAY ==
--- OUTSIDE RECORDS SUMMARY | 2022-02-24 10:22 | XMS REPORT | Continuity of Care Document ---
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 [id number] [facility] 18:55:00 02:25:00 r [place] 54 [facility] 2020-10-14 2020-10-18 Outpatient Luigi [facility] [id number] 13:55:00 21:25:00 [facility] 2020-10-18 Inpatient U KEITH [facility] [id number] [facility] 13:55:00 21:25:00 CAPRICE 2020-10-14 2020-10-14 Outpatient Luigi [facility] [id number] 13:55:00 13:55:00 Caprice Campos [facility] 2015-05-08 2015-05-08 [facility] [id number] Memoria 02:06:00 06:09:00 Emergency r [place] 36 [facility] 2015-05-07 2015-05-08 Outpatient [place], [facility] [id number] 20:06:00 00:09:00 Agapito Rosado Results Test Description Test Time Test Comments Results Result Comments Source HEMATOLOGY 2020-10-18 02:43:00 Test Item Value Reference Range Interpretation Comme nts Hgb (test code = Hgb) 9.6 12.0-16.0 [id number] 02:43:00 Test Item Value Reference Range Interpretation Comments Hct (test code = Hct) 28.4 36.0-48.0 [facility] [id number] 04:43:00 Test Item Value Reference Range Interpretation Comments UA Sq Epi (test code = UA Sq Occasional /LPF Epi) [facility] AND [id number] 04:43:00 Test Item Value Reference Range Interpretation Comments UA WBC (test code = 1 See_Comment [Automa jacob message] The UA WBC) system which ge nerated this result transmit jacob reference range : <=5. The reference range was not used to interpr et this result as deniz l/abnormal. [facility] [id number] 04:43:00 Test Item Value Reference Range Interpretation Comments UA RBC (test code = 1 See_Comment [Automa jacob message] The UA RBC) system which ge nerated this result transmit jacob reference range : <=2. The reference range was not used to interpr et this result as deniz l/abnormal. [facility] [id number] 04:43:00 Test Item Value Reference Range Interpretation Comments UA Color (test code = Yellow *NA*(10/16/20 UA Color) 11:43 PM) [facility] AND [id number] 04:43:00 Test Item Value Reference Range Interpretation Comments UA Turbidity (test code = Clear (10/16/20 11:43 UA Turbidity) PM) [facility] AND [id number] 04:43:00 Test Item Value Reference Range Interpretation Comments UA Spec Grav (test code = UA Spec 1.010 1 Grav) [facility] AND [id number] 04:43:00 Test Item Value Reference Range Interpretation Comments UA pH (test code = UA pH) 6.5 1 5.0-8.0 [facility] [id number] 04:43:00 Test Item Value Reference Range Interpretation Comments UA Protein (test code = UA Negative mg/dL Protein) [facility] [id number] 04:43:00 Test Item Value Reference Range Interpretation Comments UA Glucose (test code = UA Negative mg/dL Glucose) [facility] [id number] 04:43:00 Test Item Value Reference Range Interpretation Comments UA Ketones (test code = UA Trace mg/dL Ketones) [facility] [id number] 04:43:00 Test Item Value Reference Range Interpretation Comments UA Bili (test code = Negative *NA*(10/16/20 UA Bili) 11:43 PM) [facility] [id number] 04:43:00 Test Item Value Reference Range Interpretation Comments UA Blood (test code = Negative (10/16/20 11:43 UA Blood) PM) [facility] [id number] 04:43:00 Test Item Value Reference Range Interpretation Comments UA Urobilinogen (test code = UA 2.0 0.1-1.0 Urobilinogen) [facility] AND [id number] 04:43:00 Test Item Value Reference Range Interpretation Comments UA Nitrite (test code Negative (10/16/20 11:43 = UA Nitrite) PM) [facility] AND [id number] 04:43:00 Test Item Value Reference Range Interpretation Comments UA Leuk Est (test Negative (10/16/20 11:43 code = UA Leuk Est) PM) [facility]2021-07-18 04:37:00 Test Item Value Reference Range Interpretation Comments Glucose Lvl (test code = Glucose Lvl) 70 70-99 [facility]2021-07-18 04:37:00 Test Item Value Reference Range Interpretation Comments BUN (test code = BUN) 6 7- [facility]2021-07-18 04:37:00 Test Item Value Reference Range Interpretation Comments Creatinine Lvl (test code = Creatinine 0.54 0.50-1.40 Lvl) [facility]2021-07-18 04:37:00 Test Item Value Reference Range Interpretation Comments Sodium Lvl (test code = Sodium Lvl) 138 135-145 [facility]2021-07-18 04:37:00 Test Item Value Reference Range Interpretation Comments Potassium Lvl (test code = Potassium 3.4 3.5-5.1 Lvl) [facility]2021-07-18 04:37:00 Test Item Value Reference Range Interpretation Comments Chloride Lvl (test code = Chloride Lvl) 107 95-109 [facility]2021-07-18 04:37:00 Test Item Value Reference Range Interpretation Comments CO2 (test code = CO2) 22 24-32 [facility]2021-07-18 04:37:00 Test Item Value Reference Range Interpretation Comments Calcium Lvl (test code = Calcium Lvl) 8.2 8.5-10.5 [place] [id number] 04:37:00 Test Item Value Reference Range Interpretation Comments Total Protein (test code = Total 5.5 6.4-8.4 Protein) [facility]2021-07-18 04:37:00 Test Item Value Reference Range Interpretation Comments Albumin Lvl (test code = Albumin Lvl) 2.0 3.5-5.0 [facility] [employer] [id number] 04:37:00 Test Item Value Reference Range Interpretation Comments ALT (test code = ALT) 24 See_Comment [Auto mated message] The system which ge nerated this result transmit jacob reference range : <=65. The reference range was not used to interpr et this result as deniz l/abnormal. [employer]2021-07-18 04:37:00 Test Item Value Reference Range Interpretation Comments AST (test code = AST) 28 See_Comment [Auto mated message] The system which ge nerated this result transmit jacob reference range : <=37. The reference range was not used to interpr et this result as deniz l/abnormal. [employer] [id number] 04:37:00 Test Item Value Reference Range Interpretation Comments Alk Phos (test code = Alk Phos) 113 39-136 [facility] [place] [id number] 04:37:00 Test Item Value Reference Range Interpretation Comments Bili Total (test code = Bili Total) 0.6 0.2-1.3 [facility] [employer] [id number] 04:37:00 Test Item Value Reference Range Interpretation Comments AGAP (test code = AGAP) 12.4 10.0-20.0 [facility] [employer] [id number] 04:37:00 Test Item Value Reference Range Interpretation Comments B/C Ratio (test code = B/C Ratio) 11 1 6-25 [facility] [employer] [id number] 04:37:00 Test Item Value Reference Range Interpretation Comments Globulin (test code = Globulin) 3.5 2.7-4.2 [facility]2021-07-18 04:37:00 Test Item Value Reference Range Interpretation Comments A/G Ratio (test code = A/G Ratio) 0.6 1 0.7-1.6 [facility]2021-07-18 04:37:00 Test Item Value Reference Range Interpretation Comments eGFR (test code = eGFR) 130 [facility] [employer] [id number] 04:37:00 Test Item Value Reference Range Interpretation Comments Mg Therap (LD) (test code = Mg Therap 1.6 4.5-7.5 (LD)) [id number] 04:37:00 Test Item Value Reference Range Interpretation Comments WBC (test code = WBC) 11.1 3.7-10.4 [facility] HospitalYyxjxjxJCYSJFJIOW7907-73-01 04:37:00 Test Item Value Reference Range Interpretation Comments RBC (test code = RBC) 3.25 4.20-5.40 [facility] HospitalVhvcicdQTCRYBSYOT8009-37-93 04:37:00 Test Item Value Reference Range Interpretation Comments Hgb (test code = Hgb) 9.6 12.0-16.0 [facility] H[id number] 04:37:00 Test Item Value Reference Range Interpretation Comments Hct (test code = Hct) 28.2 36.0-48.0 [facility] HospitalSdtgzcnFIFWIBFMFT8824-92-31 04:37:00 Test Item Value Reference Range Interpretation Comments MCV (test code = MCV) 86.5 80.0-98.0 [facility] HospitalSfjyuwoUUVJWEMVXU4644-88-86 04:37:00 Test Item Value Reference Range Interpretation Comments MCH (test code = MCH) 29.6 pg 27.0-31.0 [facility] HospitalFdncdspSZVKNFINNZ6157-47-14 04:37:00 Test Item Value Reference Range Interpretation Comments MCHC (test code = MCHC) 34.2 32.0-36.0 [facility] Hospit[id number] 04:37:00 Test Item Value Reference Range Interpretation Comments RDW (test code = RDW) 14.9 11.5-14.5 [facility] HospitalRjpzeumGHQETOVEDO5353-46-75 04:37:00 Test Item Value Reference Range Interpretation Comments Platelet (test code = Platelet) 234 133-450 [facility] HospitalOjlorbpPFHVAQGKUT7990-71-90 04:37:00 Test Item Value Reference Range Interpretation Comments MPV (test code = MPV) 7.7 7.4-10.4 [facility] HospitalKunkkcrWLVUSXXCRN3386-27-59 04:37:00 Test Item Value Reference Range Interpretation Comments Segs (test code = Segs) 77.8 45.0-75.0 [facility] HospitalZrwumwrGRMPRSJHWO0373-63-21 04:37:00 Test Item Value Reference Range Interpretation Comments Lymphocytes (test code = Lymphocytes) 14.3 20.0-40.0 [facility] HospitalPyiknmkCZDCZVUOHM0010-65-44 04:37:00 Test Item Value Reference Range Interpretation Comments Monocytes (test code = Monocytes) 7.5 2.0-12.0 [facility] HospitalNhwysrvAHBWQZSZER3876-87-59 04:37:00 Test Item Value Reference Range Interpretation Comments Eosinophils (test code = 0.3 See_Comment [A utomated message] The Eosinophils) system which ge nerated this result tra nsmitted reference range : <=4.0. The reference r kathe was not used to int erpret this result as normal/abnormal . [facility] HospitalNwrzspsQHAOTRMPRP5754-33-70 04:37:00 Test Item Value Reference Range Interpretation Comments Basophils (test code = 0.1 See_Comment [Aut omated message] The Basophils) system which ge nerated this result tra nsmitted reference range : <=1.0. The reference r kathe was not used to int erpret this result as normal/abnormal . [facility] HospitalJhiprkmBCYFGQZPCM3859-96-13 04:37:00 Test Item Value Reference Range Interpretation Comments Neutrophils # (test code = Neutrophils 8.6 1.5-8.1 #) [facility] HospitalSrvclpyHZYXSNXRDF6129-26-91 04:37:00 Test Item Value Reference Range Interpretation Comments Lymphocytes # (test code = Lymphocytes 1.6 1.0-5.5 #) [facility] HospitalWxsgdrzAFXHKYUOMD8683-28-92 04:37:00 Test Item Value Reference Range Interpretation Comments Monocytes # (test code 0.8 See_Comment [Aut omated message] The = Monocytes #) system which generated this result tra nsmitted reference range : <=0.8. The reference r kathe was not used to int erpret this result as normal/abnormal . [facility] [id number] 22:18:00 Test Item Value Reference Range Interpretation Comments U Creatinine (test code = U 108.00 Creatinine) [facility] [id number] 22:18:00 Test Item Value Reference Range Interpretation Comments U Protein (test code = U Protein) 24.3 [facility] [id number] 22:18:00 Test Item Value Reference Range Interpretation Comments U Prot/Creat (test code = U 0.22 1 Prot/Creat) [facility] HospitalLuctkbkBSZOACWENJ1134-05-91 21:28:00 Test Item Value Reference Range Interpretation Comments Lymphocytes # (test code = Lymphocytes 2.0 1.0-5.5 #) [facility] HospitalSfgrbvgBTFKSPXJJQ4082-70-99 21:28:00 Test Item Value Reference Range Interpretation Comments Monocytes # (test code 0.6 See_Comment [Aut omated message] The = Monocytes #) system which generated this result tra nsmitted reference range : <=0.8. The reference r kathe was not used to int erpret this result as normal/abnormal . [facility] Hos[id number] 21:28:00 Test Item Value Reference Range Interpretation Comments Eosinophils # (test code 0.1 See_Comment [A utomated message] The = Eosinophils #) system whic h generated this result tra nsmitted reference range : <=0.5. The reference r kathe was not used to int erpret this result as normal/abnormal . [facility] H[id number] 21:28:00 Test Item Value Reference Range Interpretation Comments Hep Bs Ag (test code Negative *NA*(10/14/20 = Hep Bs Ag) 4:28 PM) [id number] 21:28:00 Test Item Value Reference Range Interpretation Comments HIV. (test code = Negative *NA*(10/14/20 HIV.) 4:28 PM) [facility] HospitalAbgqnrdTDOQKDMYLH8812-84-25 21:28:00 Test Item Value Reference Range Interpretation Comments Treponemal Ab (test code Non-Reactive = Treponemal Ab) *NA*(10/14/20 4:28 PM) [facility]La[facility] Wolf [id number] 21:28:00 Test Item Value Reference Range Interpretation Comments eGFR (test code = eGFR) 124 [facility]ercielo24 [id number] 21:28:00 Test Item Value Reference Range Interpretation Comments Creatinine Lvl (test code = Creatinine 0.62 0.50-1.40 Lvl) [facility] [id number] 21:28:00 Test Item Value Reference Range Interpretation Comments Uric Acid (test code = Uric Acid) 4.2 2.5-7.0 [facility]La[facility] [id number] 21:28:00 Test Item Value Reference Range Interpretation Comments LDH (test code = LDH) 183 98-192 [facility] Centercielo24 [id number] 21:28:00 Test Item Value Reference Range Interpretation Comments ALT (test code = ALT) 26 See_Comment [Auto mated message] The system which ge nerated this result transmit jacob reference range : <=65. The reference range was not used to interpr et this result as deniz l/abnormal. [facility]2021-07-15 21:28:00 Test Item Value Reference Range Interpretation Comments AST (test code = AST) 23 See_Comment [Auto mated message] The system which ge nerated this result transmit jacob reference range : <=37. The reference range was not used to interpr et this result as deniz l/abnormal. [facility] HospitalZyhbaacIWNNXJMEUN7150-07-22 21:28:00 Test Item Value Reference Range Interpretation Comments WBC (test code = WBC) 9.1 3.7-10.4 [facility] HospitalTokkvjbISXUEWRQXS8648-20-27 21:28:00 Test Item Value Reference Range Interpretation Comments RBC (test code = RBC) 4.07 4.20-5.40 [facility] HospitalYrwkvpzXUVBBCEMYY1448-31-34 21:28:00 Test Item Value Reference Range Interpretation Comments Hgb (test code = Hgb) 12.1 12.0-16.0 [facility] HospitalLyrgzkwSNQCHNYCJT2914-21-62 21:28:00 Test Item Value Reference Range Interpretation Comments Hct (test code = Hct) 35.3 36.0-48.0 [facility] HospitalFtgxtaaJARSJAOUMQ6563-79-57 21:28:00 Test Item Value Reference Range Interpretation Comments MCV (test code = MCV) 86.8 80.0-98.0 [facility] HospitalHywbukhVRQCIETOAX9865-74-30 21:28:00 Test Item Value Reference Range Interpretation Comments MCH (test code = MCH) 29.6 pg 27.0-31.0 [facility] HospitalGgirrrwWZLKGUIWAO1634-72-49 21:28:00 Test Item Value Reference Range Interpretation Comments MCHC (test code = MCHC) 34.1 32.0-36.0 [place] [id number] 21:28:00 Test Item Value Reference Range Interpretation Comments RDW (test code = RDW) 15.1 11.5-14.5 [facility] HospitalHpfbtvoFEPDPIIRMO9995-93-36 21:28:00 Test Item Value Reference Range Interpretation Comments Platelet (test code = Platelet) 282 133-450 [facility] HospitalUpbvewqNCDUOQJDZE4245-53-49 21:28:00 Test Item Value Reference Range Interpretation Comments MPV (test code = MPV) 7.9 7.4-10.4 [facility] HospitalHnoswlfWTNOFCJUON3930-64-80 21:28:00 Test Item Value Reference Range Interpretation Comments Segs (test code = Segs) 69.9 45.0-75.0 [facility] HospitalDsnlrecZMQSUCOZXJ7302-52-50 21:28:00 Test Item Value Reference Range Interpretation Comments Lymphocytes (test code = Lymphocytes) 22.6 20.0-40.0 [facility] HospitalWkeuuwvLGGJOWMBDX5427-12-68 21:28:00 Test Item Value Reference Range Interpretation Comments Monocytes (test code = Monocytes) 6.6 2.0-12.0 [facility] HospitalHprajxpHCZUABGXSR7358-31-07 21:28:00 Test Item Value Reference Range Interpretation Comments Eosinophils (test code = 0.7 See_Comment [A utomated message] The Eosinophils) system which ge nerated this result tra nsmitted reference range : <=4.0. The reference r kathe was not used to int erpret this result as normal/abnormal . [facility] HospitalDjmzqznJVNLVJGZOW4277-93-02 21:28:00 Test Item Value Reference Range Interpretation Comments Basophils (test code = 0.2 See_Comment [Aut omated message] The Basophils) system which ge nerated this result tra nsmitted reference range : <=1.0. The reference r kathe was not used to int erpret this result as normal/abnormal . [facility] HospitalCchlnneGIMMFXXCDS7863-13-83 21:28:00 Test Item Value Reference Range Interpretation Comments Neutrophils # (test code = Neutrophils 6.3 1.5-8.1 #) [facility] HospitalTrips n Salsa [id number] 21:00:00 Test Item Value Reference Range Interpretation Comments ABO/Rh (test code = ABO/Rh) O POS [facility] CenterJ[facility] [id number] 21:00:00 Test Item Value Reference Range Interpretation Comments Antibody Scrn (test Negative (10/14/20 4:00 code = Antibody Scrn) PM) [facility] HospitalFvjpmknAHPFKMEBHE6719-62-55 19:11:00 Test Item Value Reference Range Interpretation Comments Coronavirus (COVID-19) Not Detected (10/14/20 MECCA (test code = 2:11 PM) Coronavirus (COVID-19) MECCA) [facility]
[2022-02-24] MEDS ORDERED: ONDANSETRON 4 MG/2 ML VIAL ONE (10:50)
[2022-02-24] MEDS ORDERED: NA CHLORIDE 0.9% 1,000 ML ONE (10:50)
[2022-02-24] MEDS ORDERED: MORPHINE 4 MG/ML SYR ONE (10:50)
[2022-02-24 11:09] LABS: Urine Blood 2+ (Negative); Urine Glucose Negative (Negative); Urine Protein 2+ (Negative); Urine Specific Gravity 1.015 (1.005-1.030)
[2022-02-24 11:13] LABS: Urine Specific Gravity/Preg 1.015 (1.005-1.030)
[2022-02-24 11:24] LABS: Absolute Lymphocytes (CBC) 0.5 K/uL (0.7-4.9); Lymphocytes % 3.5 % (15.3-44.8); MCV 85.9 fL (80-100); Urine Bacteria <20 /HPF (<20); Urine Mucus Slight /HPF (None Seen); Urine WBC Clump Occasional /HPF (None Seen)
[2022-02-24 11:39] LABS: Albumin 3.3 g/dL (3.4-5.0); Bilirubin Total 1.4 mg/dL (0.2-1.0); Potassium 3.1 mmol/L (3.5-5.1); Protein, Total 7.4 g/dL (6.4-8.2)
[2022-02-24] MEDS ORDERED: CEFTRIAXONE 1000 MG/VIAL ONE (11:47)
[2022-02-24] MEDS ORDERED: KETOROLAC 30 MG/ML INJ ONE (11:47)
[2022-02-24] MEDS ORDERED: NA CHLORIDE 0.9% 100 ML IV ONE ×2 (11:48→15:11)
--- NOTE | 2022-02-24 12:20 | RAD REPORT ---
EXAM DESCRIPTION: CT - Abdomen Pelvis W Contrast - 02/24/2022 11:57 am CLINICAL HISTORY: Abdominal pain COMPARISON: 2018 TECHNIQUE: Computed axial tomography of the abdomen pelvis was obtained. 100 cc Isovue-300 was admin istered intravenously. Oral contrast was not requested which limits evaluation of bowel and appendix All CT scans are performed using dose optimization technique as appropriate and may include automated exposure control or mA/KV adjustment according to patient size. FINDINGS: Cholecystectomy The liver, spleen, pancreas, adrenal and left kidney appear unremarkable. There is no evidence of diverticulitis. Normal appendix Several small low to intermediate density areas within the right kidney reaching periphery having the appearance of pyelonephritis. Enhancement of the right ureter wall. No adnexal mass. Small umbilical hernia IMPRESSION: Mild to moderate right pyelonephritis. Right ureteritis
--- NOTE | 2022-02-24 12:33 | EDPHYS ---
Physician Documentation [facility] Name: Chantelle Hardwick Age: 31 yrs Sex: Female : 1990 Arrival Date: 02/24/2022 Time: 10:18 Bed 8 Private MD: ED Physician Nate Brooke HPI: 02/24 11:41 This 31 yrs old Female presents to ER via Ambulatory with complaints of right darlene flank pain, uti. 11:41 The patient complains of pain in the right mid back and right low back. The pain darlene radiates to the right mid back and right low back. Onset: The symptoms/episode began/occurred 12 day(s) ago. Modifying factors: The symptoms are alleviated by nothing. the symptoms are aggravated by movement, palpation/percussion. The patient presents with urinary symptoms, dysuria, frequency, hematuria, urgency. Onset: The symptoms/episode began/occurred 11 day(s) ago. Modifying factors: The symptoms are alleviated by remaining still, the symptoms are aggravated by movement, pressure, walking. Associated signs and symptoms: Pertinent positives: cramping, nausea. Severity of symptoms: At their worst the symptoms were moderate, in the emergency department the symptoms are unchanged. 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 - Social history:: Smoking status: Patient denies any tobacco usage or history of. - Family history:: not pertinent. ROS: 11:43 Constitutional: Negative for fever, chills, and weight loss, Eyes: Negative for injury, darlene pain, redness, and discharge, ENT: Negative for injury, pain, and discharge, Neck: Negative for injury, pain, and swelling, Cardiovascular: Negative for chest pain, palpitations, and edema, Respiratory: Negative for shortness of breath, cough, wheezing, and pleuritic chest pain, Abdomen/GI: Negative for abdominal pain, nausea, vomiting, diarrhea, and constipation, MS/Extremity: Negative for injury and deformity, Skin: Negative for injury, rash, and discoloration, Neuro: Negative for headache, weakness, numbness, tingling, and seizure, Psych: Negative for depression, anxiety, suicide ideation, homicidal ideation, and hallucinations, Allergy/Immunology: Negative for hives, rash, and allergies, Endocrine: Negative for neck swelling, polydipsia, polyuria, polyphagia, and marked weight changes, Hematologic/Lymphatic: Negative for swollen nodes, abnormal bleeding, and unusual bruising. 11:43 Back: Positive for flank pain, on the right, radiated pain. 11:43 : Positive for urinary symptoms, flank pain, urinary frequency, small amounts, burning with urination, difficulty urinating. Exam: 11:43 Constitutional: This is a well developed, well nourished patient who is awake, alert, darlene and in no acute distress. Head/Face: Normocephalic, atraumatic. Eyes: Pupils equal round and reactive to light, extra-ocular motions intact. Lids and lashes normal. Conjunctiva and sclera are non-icteric and not injected. Cornea within normal limits. Periorbital areas with no swelling, redness, or edema. ENT: Nares patent. No nasal discharge, no septal abnormalities noted. Tympanic membranes are normal and external auditory canals are clear. Oropharynx with no redness, swelling, or masses, exudates, or evidence of obstruction, uvula midline. Mucous membranes moist. Neck: Trachea midline, no thyromegaly or masses palpated, and no cervical lymphadenopathy. Supple, full range of motion without nuchal rigidity, or vertebral point tenderness. No Meningismus. Chest/axilla: Normal chest wall appearance and motion. Nontender with no deformity. No lesions are appreciated. Respiratory: Lungs have equal breath sounds bilaterally, clear to auscultation and percussion. No rales, rhonchi or wheezes noted. No increased work of breathing, no retractions or nasal flaring. Skin: Warm, dry with normal turgor. Normal color with no rashes, no lesions, and no evidence of cellulitis. MS/ Extremity: Pulses equal, no cyanosis. Neurovascular intact. Full, normal range of motion. Neuro: Awake and alert, GCS 15, oriented to person, place, time, and situation. Cranial nerves II-XII grossly intact. Motor strength 5/5 in all extremities. Sensory grossly intact. Cerebellar exam normal. Normal gait. Psych: Awake, alert, with orientation to person, place and time. Behavior, mood, and affect are within normal limits. 11:43 Cardiovascular: Rate: tachycardic, actual rate is 147 bpm, Rhythm: regular, Pulses: Pulses are 4+ in bilateral radial, brachial, femoral, popliteal, posterior tibial and and dorsalis pedis arteries.. Heart sounds: normal, Edema: is not appreciated, JVD: is not appreciated. Vital Signs: 10:39 BP 113 / 75; Pulse 147; Resp 18; Temp 98; Pulse Ox 99% ; Weight 69.85 kg; Height 5 ft. bp 4 in. (162.56 cm); 15:10 BP 100 / 86; Pulse 140; Resp 15; Temp 103.2; Pulse Ox 95% ; jl7 16:41 BP 104 / 72; Pulse 140; Resp 16; Temp 100.0; Pulse Ox 100% ; bp 10:39 Body Mass Index 26.43 (69.85 kg, 162.56 cm) bp MDM: 10:40 Patient medically screened. darlene 11:45 Differential diagnosis: nephrolithiasis, pyelonephritis, UTI, kidney stone, nonspecific darlene abdominal pain, urinary tract infection. Data reviewed: vital signs, nurses notes, lab test result(s), radiologic studies, CT scan. Data interpreted: back grinder: not applicable for this patient encounter. rate is 147 beats/min, Pulse oximetry: on room air is 99 %. Test interpretation: by ED physician or midlevel provider: plain radiologic studies. Counseling: I had a detailed discussion with the patient and/or guardian regarding: the historical points, exam findings, and any diagnostic results supporting the discharge/admit diagnosis, lab results, radiology results. 02/24 10:43 Order name: CBC with Diff; Complete Time: 11:40 [facility] 02/24 10:43 Order name: CMP; Complete Time: 11:40 [facility] 02/24 10:43 Order name: Lipase; Complete Time: 11:40 [facility] 02/24 10:43 Order name: Urine Microscopic Only; Complete Time: 11:40 [facility] 02/24 10:43 Order name: Test, Serum; Complete Time: 11:40 [facility] 02/24 11:09 Order name: Urine Dipstick-Ancillary; Complete Time: 11:40 [facility] 02/24 10:43 Order name: CT Abd/Pelvis - IV Contrast Only; Complete Time: 12:29 [facility] 02/24 11:10 Order name: Urine --Ancillary (enter results) em1 02/24 11:27 Order name: Urine Culture [facility] 02/24 12:52 Order name: SARS RAPID; Complete Time: 07:05 02/24 10:43 Order name: IV Saline Lock; Complete Time: 11:20 [facility] 02/24 10:43 Order name: Labs collected and sent; Complete Time: 11: [facility] 02/24 10:43 Order name: Urine Dipstick-Ancillary (obtain specimen); Complete Time: 11:09 [facility] 02/24 10:43 Order name: Urine Test (obtain specimen); Complete Time: 11:09 [facility] Administered Medications: 11:00 Drug: NS 0.9% 1000 ml Route: IV; Rate: 1 bolus; Site: right forearm; bp 16:40 Follow up: IV Status: Completed infusion; IV Intake: 1000ml bp 11:00 Drug: Zofran (Ondansetron) 4 mg Route: IVP; Site: right forearm; bp 16:41 Follow up: Response: No adverse reaction bp 11:00 Drug: morphine 4 mg Route: IVP; Infused Over: 4 mins; Site: right forearm; bp 16:41 Follow up: Response: No adverse reaction; Pain is decreased bp 12:00 Drug: Rocephin (cefTRIAXone) 2 grams Route: IV; Rate: per protocol; Site: right forearm;bp 16:40 Follow up: IV Status: Completed infusion; IV Intake: 100ml bp 12:00 Drug: Ketorolac 30 mg Route: IVP; Site: right forearm; bp 12:48 Follow up: Response: No adverse reaction bp 12:15 Drug: Potassium Effervescent Tablet 50 mEq Route: PO; bp 12:52 Follow up: Response: No adverse reaction bp 13:09 Drug: Tobramycin 5 mg/kg Route: IVPB; Site: right forearm; bp 16:40 Follow up: IV Status: Completed infusion; IV Intake: 100ml bp 14:00 Drug: Dilaudid (HYDROmorphone) 0.5 mg Route: IVP; Site: right forearm; bp 16:43 Follow up: Response: No adverse reaction; Pain is decreased bp 15:17 Drug: Phenergan (promethazine) 25 mg Route: IVP; Site: right antecubital; mb9 16:40 Follow up: Response: Nausea is decreased bp 15:27 Drug: Tylenol 1000 mg Route: PO; jl7 16:39 Follow up: Response: Temperature is decreased bp 15:27 Drug: Motrin (ibuprofen) 600 mg Route: PO; jl7 16:39 Follow up: Response: Temperature is decreased bp Disposition Summary: 02/24/22 12:33 Hospitalization Ordered Hospitalization Status: Inpatient Admission darlene Provider: Wilder Fang cha Condition: Fair darlene Problem: new darlene Symptoms: have improved darlene Bed/Room Type: Standard [facility](02/24/22 16:04) ja1 Room Assignment: [facility]-(02/24/22 16:04) ja Diagnosis - Pyelonephritis acute darlene - UTI/ Urinary tract infection, site not specified darlene - Tachycardia, unspecified darlene - Fever, unspecified darlene Forms: - Medication Reconciliation Form darlene - SBAR form darlene Signatures: Dispatcher [employer] EDNate Pat MD MD cha Nieto, Roman, MD MD rn Leal, Jahala RN RN jl7 Renaldo Hamlin RN RN ja1 Aniket Yun RN RN Stephanie Lopes RN RN mb9 Corrections: (The following items were deleted from the chart) 16:04 12:33 Telemetry/MedSurg (Inpatient) darlene [facility] 16:04 12:33 [place] [id number]
--- NOTE | 2022-02-24 12:33 | ER ---
Nurse's Notes [facility] Name: Chantelle Hardwick Age: 31 yrs Sex: Female : 1990 Arrival Date: 02/24/2022 Time: 10:18 Bed 8 Private MD: Diagnosis: Pyelonephritis acute;UTI/ Urinary tract infection, site not specified;Tachycardia, unspecified;Fever, unspecified Presentation: 02/24 10:39 Chief complaint: Patient states: R FLANK PAIN EXTENDING TO RLQ WITH OL[place]RIA AND bp URINARY FREQUENCY. Coronavirus screen: At this time, the client does not indicate any symptoms associated with coronavirus-19. Ebola Screen: No symptoms or risks identified at this time. Initial Sepsis Screen: Does the patient meet any 2 criteria? HR > 90 bpm. No. Patient's initial sepsis screen is negative. Does the patient have a suspected source of infection? Yes: Dysuria/Frequency/Urgency/UTI. Risk Assessment: Do you want to hurt yourself or someone else? Patient reports no desire to harm self or others. Onset of symptoms is unknown. 10:39 Method Of Arrival: Ambulatory bp 10:39 Acuity: DIOMEDES 3 bp Triage Assessment: 10:41 General: Appears distressed, uncomfortable, Behavior is cooperative, appropriate for bp age, anxious. Pain: Complains of pain in right flank. EENT: No deficits noted. Neuro: No deficits noted. Cardiovascular: Rhythm is sinus tachycardia. Respiratory: No deficits noted. GI: No signs and/or symptoms were reported involving the gastrointestinal system. : Reports urgency, urinary frequency. Derm: No deficits noted. Musculoskeletal: No deficits noted. 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 - Social history:: Smoking status: Patient denies any tobacco usage or history of. - Family history:: not pertinent. Screenin:43 Abuse screen: Denies threats or abuse. Denies injuries from another. Nutritional bp screening: No deficits noted. Tuberculosis screening: No symptoms or risk factors identified. Fall Risk None identified. Assessment: 10:43 General: SEE TRIAGE NOTE. bp 15:27 Reassessment: Pt actively vomiting, ERD notified, VO for 25 mg phenergan in 100 mL over jl7 15 min. Pt medicated as ordered. HR noted to be 140, checked oral temp, read 103.2, ERD notified and VO for 600 Motrin and 1000 mg Tylenol PO x 1. Pt medicated as ordered. Vital Signs: 10:39 BP 113 / 75; Pulse 147; Resp 18; Temp 98; Pulse Ox 99% ; Weight 69.85 kg; Height 5 ft. bp 4 in. (162.56 cm); 15:10 BP 100 / 86; Pulse 140; Resp 15; Temp 103.2; Pulse Ox 95% ; jl7 16:41 BP 104 / 72; Pulse 140; Resp 16; Temp 100.0; Pulse Ox 100% ; bp 10:39 Body Mass Index 26.43 (69.85 kg, 162.56 cm) bp ED Course: 10:18 Patient arrived in ED. as 10:39 Aniket Yun, OVI is Primary Nurse. bp 10:40 Nate Brooke MD is Attending Physician. darlene 10:41 Triage completed. bp 10:43 Arm band placed on. bp 10:43 Patient has correct armband on for positive identification. Bed in low position. Call bp light in reach. Side rails up X2. Adult w/ patient. 11:00 Inserted saline lock: 20 gauge in right forearm, using aseptic technique. Blood bp collected. 11:59 CT Abd/Pelvis - IV Contrast Only In Process Unspecified. EDMS 12:30 Wilder Fang MD is Hospitalizing Provider. darlene 16:42 No provider procedures requiring assistance completed. Patient admitted, IV remains in bp place. Administered Medications: 11:00 Drug: NS 0.9% 1000 ml Route: IV; Rate: 1 bolus; Site: right forearm; bp 16:40 Follow up: IV Status: Completed infusion; IV Intake: 1000ml bp 11:00 Drug: Zofran (Ondansetron) 4 mg Route: IVP; Site: right forearm; bp 16:41 Follow up: Response: No adverse reaction bp 11:00 Drug: morphine 4 mg Route: IVP; Infused Over: 4 mins; Site: right forearm; bp 16:41 Follow up: Response: No adverse reaction; Pain is decreased bp 12:00 Drug: Rocephin (cefTRIAXone) 2 grams Route: IV; Rate: per protocol; Site: right forearm;bp 16:40 Follow up: IV Status: Completed infusion; IV Intake: 100ml bp 12:00 Drug: Ketorolac 30 mg Route: IVP; Site: right forearm; bp 12:48 Follow up: Response: No adverse reaction bp 12:15 Drug: Potassium Effervescent Tablet 50 mEq Route: PO; bp 12:52 Follow up: Response: No adverse reaction bp 13:09 Drug: Tobramycin 5 mg/kg Route: IVPB; Site: right forearm; bp 16:40 Follow up: IV Status: Completed infusion; IV Intake: 100ml bp 14:00 Drug: Dilaudid (HYDROmorphone) 0.5 mg Route: IVP; Site: right forearm; bp 16:43 Follow up: Response: No adverse reaction; Pain is decreased bp 15:17 Drug: Phenergan (promethazine) 25 mg Route: IVP; Site: right antecubital; mb9 16:40 Follow up: Response: Nausea is decreased bp 15:27 Drug: Tylenol 1000 mg Route: PO; jl7 16:39 Follow up: Response: Temperature is decreased bp 15:27 Drug: Motrin (ibuprofen) 600 mg Route: PO; jl7 16:39 Follow up: Response: Temperature is decreased bp Medication: 10:43 VIS not applicable for this client. bp Intake: 16:40 IV: 100ml; Total: 100ml. bp 16:40 IV: 100ml; Total: 200ml. bp 16:40 IV: 1000ml; Total: 1200ml. bp Outcome: 12:33 Decision to Hospitalize by Provider. darlene 16:42 Admitted to Med/surg accompanied by tech, family with patient, via wheelchair, room bp 278, with chart. 16:42 Condition: stable 16:42 Instructed on the need for admit. 16:48 Patient left the ED. mb9 Signatures: Dispatcher [employer] EDMS Nate Brooke MD MD cha Martinez, Amelia as Leal, Jahala, RN RN jl7 Aniket Yun RN RN bp Stephanie Nolan RN RN mb9 Corrections: (The following items were deleted from the chart) 12:38 10:39 BP 113 / 75; Pulse 147bpm; Resp 18bpm; Pulse Ox 99%; Temp 98F; bp bp
[2022-02-24] MEDS ORDERED: POTASSIUM 25 MEQ EFFERV TAB ONE (12:42)
[2022-02-24] MEDS ORDERED: TOBRAMYCIN IV ONE (13:00)
[2022-02-24] MEDS ORDERED: NA CHLORIDE 0.9% IV ONE (13:00)
[2022-02-24] MEDS ORDERED: HYDROMORPHONE HCL 0.5 MG/0.5 ML INJ ONE (13:04)
[2022-02-24 13:18] LABS: SARS-CoV-2 Antigen Rapid Res Negative (Negative)
[2022-02-24] MEDS ORDERED: PROMETHAZINE INJ 25 MG/ML AMP ONE (15:11)
[2022-02-24] MEDS ORDERED: IBUPROFEN 400 MG TAB ONE (15:22)
[2022-02-24] MEDS ORDERED: ACETAMINOPHEN 500 MG TAB ONE (15:22)
[2022-02-24] MEDS ORDERED: ONDANSETRON 4 MG/2 ML VIAL IV PRN (15:22)
[2022-02-24] MEDS ORDERED: IBUPROFEN 200 MG TAB PO ONE (15:24)
--- NOTE | 2022-02-24 15:24 | P.HP ---
Certification for Inpatient Patient admitted to: Inpatient With expected LOS: >2 Midnights Patient will require the following post-hospital care: None Practitioner: I am a practitioner with admitting privileges, knowledge of patient current condition, hospital course, and medical plan of care. Services: Services provided to patient in accordance with Admission requirements found in Title 42 Section 412.3 of the Code of Federal Regulations Patient History Date of Service: 02/24/22 Reason for admission: Sepsis due to Pyelonephritis History of Present Illness: Ms. Chantelle Hardwick is a 31-year-old female who has no reported past medical history who presents to the [facility] Emergency Department for right flank pain. She reports that, over the last 1.5 weeks, she has been experiencing progressively worsening right sided flank pain. She states that this has been associated with fever, chills, nausea, and urinary frequency. She describes the pain as sharp and grades it an 8/10 in severity. She denies any obvious inciting or alleviating factors. She tried to manage her symptoms with [id number] Azo, ibuprofen, and heating pads, without alleviation. On review of systems, she denies any headaches, dizziness, syncope, chest pain, palpitations, shortness of breath, wheezing, cough, abdominal pain, vomiting, diarrhea, constipation, hematochezia, melena, hematuria, myalgia, or any other symptoms. She presented to the Emergency Department for further evaluation. Upon presentation, her vital signs were notable for a temperature of 103.2 F and a heart rate of 147 bpm. Her laboratory studies were notable for a WBC count of 14,600 and a potassium of 3.1. Her CT abdomen/pelvis revealed, "mild to moderate right pyelonephritis. Right ureteritis." In the Emergency Department, she was given ondansetron, morphine, ceftriaxone, ketorolac, potassium, tobramycin, hydromorphone, promethazine, acetaminophen, and ibuprofen. She was admitted to the General Internal Medicine service for further evaluation. Allergies No Known Allergies Allergy (Verified 02/24/22 17:03) Home medications list reviewed: Yes Home Medications: Drospirenone [Slynd] 4 mg PO DAILY 02/24/22 Tirzepatide [Mounjaro] 7.5 mg SQ Q7D 02/24/22 - Past Medical/Surgical History Diabetic: No Past Medical History: Patient denies medical history -: Cesarian Section (10/16/2020) -: Cholecystectomy (2018) - Family History Family History: Reviewed- Non-Contributory - Family History Mother -: Lung disease Notes: Emphasyma - Social History Smoking Status: Never smoker Alcohol use: No CD- Drugs: No Review of Systems General: Fever, Chills Eyes: Unremarkable ENT: Unremarkable Respiratory: Unremarkable Cardiovascular: Unremarkable Gastrointestinal: Nausea Genitourinary: Dysuria, Frequency, Urgency Musculoskeletal: Back Pain (right flank) Integumentary: Unremarkable Neurological: Unremarkable Lymphatics: Unremarkable Physical Examination - Vital Signs Temperature: 100 F Blood Pressure: 104/72 Pulse: 140 Respirations: 16 Pulse Ox (%): 99 (room air) - Physical Exam General: Alert, Oriented x3, Mild distress HEENT: Atraumatic, PERRLA, Mucous membr. moist/pink, EOMI, Sclerae nonicteric Neck: JVD not distended Respiratory: Clear to auscultation bilaterally, Normal air movement Cardiovascular: No edema, Normal S1 S2, No gallops, No rubs, No murmurs, Other (tachycardic rate) Capillary refill: <2 Seconds Gastrointestinal: Normal bowel sounds, Hypoactive, Non-distended, No tenderness, No rebound, No guarding Musculoskeletal: No clubbing Integumentary: No rashes Neurological: Normal speech, Cranial nerves 3-12 intact, Normal affect - Studies Laboratory Data (last 24 hrs) 02/24/22 11:00: Sodium 133 L, Potassium 3.1 L, BUN 6 L, Creatinine 0.83, Glucose 101, Total Bilirubin 1.4 H, AST 33, ALT 53, Alkaline Phosphatase 86, Lipase 211 02/24/22 11:00: WBC 14.60 H, Hgb 12.7, Hct 37.0, Plt Count 221 Assessment and Plan - Plan # Sepsis likely secondary to Acute Right Pyelonephritis with Ureteritis She meets sepsis criteria based on temperature > 100.9 F, HR > 90 bpm, and WBC > 12,000 and the suspected source is urinary. - Sepsis order set was initiated - Initial Lactate was ordered - Blood cultures requested - Broad spectrum antibiotics started: S/P Tobramycin + Ceftriaxone in ED -> Piperacillin-Tazobactam - In regards to fluids: - 30 mL/kg of IV fluids was given based on her actual body weight - UA = 4+ ketones, 2+ blood, 2+ leukocyte esterase, 1120 RBCs, > 50 WBCs, 2+ protein - CT abdomen/pelvis = "mild to moderate right pyelonephritis. Right ureteritis" # Mild Hypokalemia - Check Mg level - Replace electrolytes as needed Wlider Fang M.D. Discharge Plan: Home Plan to discharge in: Greater than 2 days - Advance Directives Does patient have a Living Will: No Does patient have a Durable POA for Healthcare: No - Code Status/Comfort Care Code Status Assessed: Yes Code Status: Full Code
[2022-02-24 17:06] VITALS: BMI 26.4
[2022-02-24] MEDS ORDERED: Ringers Lactate 1,000 ML IV SCH (17:09)
[2022-02-24] MEDS: PIPER TAZO 3.375 GM in NA CHLORIDE 0.9% 100 ML IV SCH (17:15)
[2022-02-24] MEDS: MORPHINE 2 MG/ML SYR IV PRN ×2 (17:21→21:51)
[2022-02-24] MEDS ORDERED: Ringers Lactate 1,000 ML IV ONE ×3 (19:20→23:50)
--- NOTE | 2022-02-24 23:29 | P.INFCA ---
Sepsis Focused Assessment - Focused Assessment Complete? Sepsis Focused Assessment Completed?: Yes (Meeting septic shock criteria at 2215 with 2 systolic BPs < 90) - Sepsis Screen Result Severe Sepsis: Positive Septic Shock: Positive - Evaluation Current stage of sepsis: Septic shock - Vital Signs Reviewed: Yes Temperature: 98.4 F Heart rate: 93 Blood Pressure: 89/58 Respiratory Rate: 14 O2 Sat by Pulse Oximetry: 99 - Examination Date exam was performed: 02/24/22 Time exam was performed: 23:45 Heart: Regular rate/rhythm Lungs: Clear bilaterally Peripheral pulses: 2+ Slightly diminished Peripheral pulse location: Radial Capillary refill: <2 Seconds Skin examination: Pale Comments: Sepsis fluids bundle not repeated because done within last 6 hours
[2022-02-25] MEDS: PIPER TAZO 3.375 GM in NA CHLORIDE 0.9% 100 ML IV SCH ×3 (00:17→16:32)
[2022-02-25] MEDS: Ringers Lactate 1,000 ML IV SCH ×4 (01:13→19:21)
--- NOTE | 2022-02-25 02:48 | P.PN ---
Date of Service: 02/25/22 Sepsis reassessment completed at 0100.
[2022-02-25] MEDS: MORPHINE 2 MG/ML SYR IV PRN ×3 (04:18→19:05)
[2022-02-25 05:13] LABS: Absolute Lymphocytes (CBC) 0.6 K/uL (0.7-4.9); Lymphocytes % 6.2 % (15.3-44.8); MCV 87.4 fL (80-100); MPV 8.2 fL (7.6-11.3); RBC Red Blood Cell Count 3.55 M/uL (3.86-4.86)
[2022-02-25 05:28] LABS: Albumin 2.4 g/dL (3.4-5.0); Bilirubin Total 0.9 mg/dL (0.2-1.0); Magnesium 1.5 mg/dL (1.8-2.4); Phosphorus 1.5 mg/dL (2.5-4.9); Potassium 3.8 mmol/L (3.5-5.1); Protein, Total 5.9 g/dL (6.4-8.2)
[2022-02-25] MEDS ORDERED: Ringers Lactate 1,000 ML IV ONE (07:52)
--- NOTE | 2022-02-25 11:36 | P.PN ---
Subjective Date of Service: 02/25/22 Chief Complaint: Sepsis due to Pyelonephritis Yesterday evening, she was transferred to the ICU due to soft blood pressures. She has received 4 L yesterday, and her MAP this morning on rounds was in the mid-50s. She is alert and oriented x 3 to person, place, and time. Her , Mr. Dillon, is at bedside. We decided to move forward with an additional 1 L of Lactated Ringers'. If we are unable to maintain MAPs > 60, will likely need to start norepinephrine drip. Review of Systems 10-point ROS is otherwise unremarkable General: Fever, Chills, Malaise Gastrointestinal: Nausea Musculoskeletal: Back Pain (right flank) Physical Examination - Vital Signs Temperature: 99.4 F Blood Pressure: 100/61 Pulse: 118 Respirations: 18 Pulse Ox (%): 95 - Studies Laboratory Data (last 24 hrs) 02/24/22 11:00: Sodium 133 L, Potassium 3.1 L, BUN 6 L, Creatinine 0.83, Glucose 101, Total Bilirubin 1.4 H, AST 33, ALT 53, Alkaline Phosphatase 86, Lipase 211 Assessment And Plan - Plan # Septic Shock likely secondary to Acute Right Gram-Negative Pyelonephritis with Ureteritis She meets sepsis criteria based on temperature > 100.9 F, HR > 90 bpm, and WBC > 12,000 and the suspected source is urinary. Septic shock is suspected secondary to multiple SBP < 90 mmHg. - Sepsis order set was initiated - Initial Lactate was 0.9 - Blood cultures drawn - Broad spectrum antibiotics started: S/P Tobramycin + Ceftriaxone in ED -> Piperacillin-Tazobactam - In regards to fluids: - 30 mL/kg of IV fluids was given based on her actual body weight - UA = 4+ ketones, 2+ blood, 2+ leukocyte esterase, 1120 RBCs, > 50 WBCs, 2+ protein - Urine culture = gram-negative rods - CT abdomen/pelvis = "mild to moderate right pyelonephritis. Right ureteritis" Sepsis reassessment completed by KRISTINA Sarah @ 1:00 AM on 02/25/2022 # Mild Hypokalemia (resolved) # Hypomagnesemia # Hypophosphatemia - Replace electrolytes as needed Wilder Fang M.D.
[2022-02-25] MEDS: KETOROLAC 30 MG/ML INJ IV PRN (11:44)
[2022-02-25] MEDS ORDERED: PROMETHAZINE INJ 25 MG/ML AMP IV ONE (14:00)
[2022-02-25] MEDS: ENOXAPARIN 40 MG/0.4 ML SQ SCH (16:32)
[2022-02-25] MEDS: ACETAMINOPHEN 500 MG TAB PO PRN (17:10)
[2022-02-25] MEDS ORDERED: Magnesium Sulfate 2gm IVPB 2 G/50 ML BAG IV ONE (20:00)
[2022-02-26] MEDS: PIPER TAZO 3.375 GM in NA CHLORIDE 0.9% 100 ML IV SCH ×3 (00:13→16:22)
[2022-02-26] MEDS: Ringers Lactate 1,000 ML IV SCH ×3 (02:56→22:04)
[2022-02-26] MEDS: MORPHINE 2 MG/ML SYR IV PRN ×2 (03:00→21:50)
[2022-02-26 05:05] LABS: Absolute Lymphocytes (CBC) 0.7 K/uL (0.7-4.9); Lymphocytes % 10.4 % (15.3-44.8); MCV 87.3 fL (80-100); MPV 8.6 fL (7.6-11.3); RBC Red Blood Cell Count 3.44 M/uL (3.86-4.86)
[2022-02-26 05:32] LABS: Albumin 2.2 g/dL (3.4-5.0); Bilirubin Total 0.7 mg/dL (0.2-1.0); Magnesium 1.9 mg/dL (1.8-2.4); Phosphorus 1.8 mg/dL (2.5-4.9); Potassium 3.1 mmol/L (3.5-5.1); Protein, Total 5.6 g/dL (6.4-8.2)
[2022-02-26] MEDS ORDERED: POTASSIUM PHOS IN 0.9 % NACL 15 MMOL/250 ML BAG IV ONE (08:00)
[2022-02-26] MEDS: KETOROLAC 30 MG/ML INJ IV PRN ×2 (08:11→22:11)
[2022-02-26] MEDS: POTASS/SODIUM PHOSPHATE 1 PKT POWD.PACK PO SCH ×3 (08:11→10:33)
[2022-02-26] MEDS ORDERED: POTASSIUM CL SA 10 MEQ TAB PO ONE ×2 (09:00)
[2022-02-26] MEDS ORDERED: ACETAMIN/CAFFEINE/BUTALB TAB PO ONE (11:00)
[2022-02-26] MEDS ORDERED: ACETAMIN/CAFFEINE/BUTALB TAB PO PRN (11:04)
[2022-02-26] MEDS: ENOXAPARIN 40 MG/0.4 ML SQ SCH (16:22)
[2022-02-26] MEDS: ACETAMINOPHEN 500 MG TAB PO PRN (22:05)
[2022-02-27] MEDS: PIPER TAZO 3.375 GM in NA CHLORIDE 0.9% 100 ML IV SCH ×2 (00:32→09:49)
[2022-02-27 00:40] VITALS: O2SAT 99
[2022-02-27] MEDS: Ringers Lactate 1,000 ML IV SCH (05:47)
[2022-02-27 07:49] LABS: BUN Blood Urea Nitrogen < 3 mg/dL (7-18); Bicarbonate 26 mmol/L (21-32); Glomerular Filtration Rate 112 ml/min (=/>90); Glucose Level 87 mg/dL (74-106); Magnesium 1.9 mg/dL (1.8-2.4); Phosphorus 2.3 mg/dL (2.5-4.9); Potassium 3.4 mmol/L (3.5-5.1); Sodium Level 141 mmol/L (136-145)
[2022-02-27] MEDS ORDERED: POTASSIUM CL SA 10 MEQ TAB PO ONE (09:34)
[2022-02-27] MEDS: KETOROLAC 30 MG/ML INJ IV PRN (09:45)
[2022-02-27] MEDS: POTASS/SODIUM PHOSPHATE 1 PKT POWD.PACK PO SCH ×3 (09:51→12:11)
[2022-02-27 12:20] LABS: C.diff Antigen/Toxin Ag pos : Tox neg (NEG : NEG)
--- NOTE | 2022-02-27 12:46 | RAD REPORT ---
EXAM DESCRIPTION: RAD - Chest Single View - 02/27/2022 11:48 am CLINICAL HISTORY: dyspnea Chest pain. COMPARISON: Chest Single View dated 01/13/2017 FINDINGS: Portable technique limits examination quality. Mild interstitial pulmonary edema is possible. The heart is normal in size. No displaced fractures.
[2022-02-27] MEDS: LACTOBACILLUS/ACIDOPHILUS TAB PO SCH ×2 (13:50→21:38)
[2022-02-27] MEDS: MORPHINE 2 MG/ML SYR IV PRN ×2 (13:51→21:41)
[2022-02-27] MEDS: VANCOMYCIN ORAL SOLN 250 MG/5 ML OSYR PO SCH ×2 (14:16→21:38)
[2022-02-27] MEDS: ENOXAPARIN 40 MG/0.4 ML SQ SCH (17:49)
--- NOTE | 2022-02-27 18:57 | CON ---
History Of Present Illness: This is a 31-year-old female I was consulted for management of pyeloneph ritis. 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 On admission , pain level was 8/10, which has improved significantly. Denies any chest pain, abdominal pain, cons tipation. Does have diarrhea 3 times. Patient does have history of C difficile colitis. Past Medical History: , cholecystectomy. Social History: Nonsmoker, nondrinker. Family History: Noncontributory. Patient was on special diet with 600 calories to lose her weight. Review of Systems: A 10-point review was performed. Physical Examination: General: This is a 31-year-old female, lying in bed, not in any acute cardiopulmonary distress. Vital Signs: Temperature 100.7, pulse 102, respiration 19, blood pressure 113/72. HEENT: Unremarkable. Neck: Supple. Lungs: Clear to auscultation. Heart: S1, S2. Regular. Abdomen: Soft, nontender. Bowel sounds present. Extremities: No edema. Laboratory Data: WBC down from 14.6 to 6.5, hemoglobin 10, platelets are 162. Chemistry shows BUN o f , creatinine 0.7. Albumin level is 2.2. Micro data shows urine culture positive for E c shima pansensitive. We will recommend to switch Zosyn from Rocephin. CT of her abdomen and pelvis shows patient has mild -to-moderate right pyelonephritis and right ureteritis. C difficile antigen is positive and toxin ne gative. Assessment And Plan: A 31-year-old female with right-sided pyelonephritis and ureteritis. Leukocyto sis is improving. Patient is growing Escherichia coli in her urine culture. We will recommend to di scontinue Zosyn and start patient on Rocephin 2 g daily for a total of 2 weeks. Continue vancomycin p.o. for management of Clostridium difficile. Also, add probiotics. Severe protein-calorie malnouri shment. We will recommend to increase nutritional status and hydration. Follow the patient closely. Thank you Dr. Moseley for consult. PAOLA/FLORES Voice ID: [id number] Report ID: [id number]
[2022-02-27] MEDS ORDERED: POTASSIUM 25 MEQ EFFERV TAB PO ONE (20:00)
[2022-02-28] MEDS: VANCOMYCIN ORAL SOLN 250 MG/5 ML OSYR PO SCH ×2 (04:50→13:02)
[2022-02-28 06:55] LABS: Bicarbonate 27 mmol/L (21-32); Glomerular Filtration Rate 122 ml/min (=/>90); Glucose Level 99 mg/dL (74-106); Potassium 3.9 mmol/L (3.5-5.1); Sodium Level 139 mmol/L (136-145)
[2022-02-28 06:56] LABS: BUN Blood Urea Nitrogen < 3 mg/dL (7-18)
--- NOTE | 2022-02-28 08:31 | RAD REPORT ---
EXAM DESCRIPTION: CT - Chest Abdomen Pelvis W Cont - 02/28/2022 7:38 am CLINICAL HISTORY: PE/Pyelonephritis, chest pain, abdominal pain COMPARISON: No comparisons TECHNIQUE: Following dynamic enhancement using 100 milliliters nonionic IV contrast, axial imaging o f the chest, abdomen and pelvis was performed. Biphasic technique was utilized through the abdomen. Oral contrast: None. All CT scans are performed using dose optimization technique as appropriate and may include automated exposure control or mA/KV adjustment according to patient size. FINDINGS: Very minimal amounts of ground-glass opacification present in each lung base. This is more likely be atelectasis than infiltrate. No obvious pneumonia seen. Very minimal bilateral pleural flu id present. No pneumothorax or pleural based mass. No aortic abnormality. Pulmonary arterial tree opa cification is not optimal but is sufficient to exclude any pulmonary emboli down to the segmental bra nch level. Likelihood of subsegmental pulmonary emboli felt to be very low. Mediastinal and hilar reg ions show no mass or abnormal lymphadenopathy. No chest wall mass or axillary lymphadenopathy. No car diomegaly or pericardial effusion. The liver, spleen and pancreas show no suspicious findings. Gallbladder is absent. No biliary tree di latation. Heterogeneous renal parenchymal enhancement pattern is seen in the right kidney typical for pyeloneph ritis. Trace amounts of diminished or heterogeneous enhancement seen in the left kidney. No hydroneph rosis. No obstructing or nonobstructing calculi. No adrenal abnormalities. Urinary bladder wall shows no thickening, edema or enhancement. Uterus and ovaries show no suspicious findings. There is questionable enhancement of the right ureter al [place]. No dilated bowel loops. A few mildly prominent fluid-filled small bowel loops are present. This could be ileus or minimal enteritis. No suspicion for appendicitis. Minimal amount of free fluid collects in the dependent portion the pelvis. No free air or pneumatosis. No acute or destructive bony process. No significant vascular finding. IMPRESSION: Right-sided pyelonephritis seen throughout the renal parenchyma. No abscess or emergent renal parenchymal finding. There is probable right ureteritis as well. No cystitis findings. No pulmonary embolism. Patient has trace bilateral pleural effusions and very minimal lung base paren chymal opacification favored to be atelectasis over infiltrate. Mild prominence of the bowel loops that may reflect ileus or enteritis.
[2022-02-28] MEDS: LACTOBACILLUS/ACIDOPHILUS TAB PO SCH (08:54)
[2022-02-28] MEDS ORDERED: CEFTRIAXONE 2,000 MG in NA CHLORIDE 0.9% 100 ML IV SCH (09:00)
[2022-02-28] MEDS ORDERED: POTASSIUM CL SA 10 MEQ TAB PO ONE (09:00)
--- NOTE | 2022-02-28 09:25 | P.PN ---
Date of Service: 02/26/22 Subjective Patient is clinically doing well with no new complaints. Review of Systems 10 point review of system is otherwise unremarkable Physical Examination - Vital Signs Reviewed -Physical exam -HEENT: within normal limits -Cardiovascular: Regular rate and rhythm with no murmurs -Lungs: Clear bilaterally -Abdomen: Soft nondistended slightly tender Assessment And Plan -Assessment # Septic Shock likely secondary to Acute Right Gram-Negative Pyelonephritis with Ureteritis # Mild Hypokalemia (resolved) # Hypomagnesemia # Hypophosphatemia -Plan 1. IV antibiotics 2. IV fluids 3. CT abdomen and pelvis 4. Replace electrolytes 5. GI DVT prophylaxis
--- NOTE | 2022-02-28 09:27 | P.PN ---
Date of Service: 02/27/22 Subjective Patient has a bad headache. Patient with shortness of breath as well. Will check chest x-ray; spoke to infectious disease and recommend treating C. difficile colitis Review of Systems 10 point review of system is otherwise unremarkable Physical Examination - Vital Signs Reviewed -Physical exam -HEENT: within normal limits -Cardiovascular: Regular rate and rhythm with no murmurs -Lungs: Clear bilaterally -Abdomen: Soft nondistended slightly tender Assessment And Plan -Assessment # Septic Shock likely secondary to Acute Right Gram-Negative Pyelonephritis with Ureteritis # Mild Hypokalemia (resolved) # Hypomagnesemia # Hypophosphatemia # C. difficile colitis -Plan 1. IV antibiotics 2. IV fluids 3. CT abdomen and pelvis 4. Replace electrolytes 5. GI DVT prophylaxis
[2022-02-28 12:20] VITALS: BP 104/65; TEMP 97.8
== END 2022-02-28 14:57 | disposition home or self-care (01) | DRG 871 ==
LOC: ER 10:17 → ERHOLD 15:19 → 2ND-WC 16:39 → 3RD-ICU 20:53 → 4TH 02-26 17:34
PROVIDERS: ADMIT Internal Medicine; ATTEND Hospitalist
DX: A41.51 Sepsis due to Escherichia coli [E. coli] (principal); E43 Unspecified severe protein-calorie malnutrition; R65.21 Severe sepsis with septic shock; N10 Acute pyelonephritis; A04.72 Enterocolitis due to Clostridium difficile, not specified as recurrent; E87.6 Hypokalemia; E83.42 Hypomagnesemia; E83.39 Other disorders of phosphorus metabolism; N28.89 Other specified disorders of kidney and ureter; Z68.26 Body mass index [BMI] 26.0-26.9, adult; Z90.49 Acquired absence of other specified parts of digestive tract; Z79.899 Other long term (current) drug therapy; Z20.822 Contact with and (suspected) exposure to COVID-19
CPT/HCPCS: 36415; 71045; 71260; 74177; 80048; 80053; 81003; 81015; 81025; 83605; 83690; 83735; 84100; 84132; 84703; 85025; 87040; 87077; 87086; 87088; 87186; 87324; 87493; 87811; 99285; J0696; J1170; J1650; J2270; J2405; J2543; J2550; J3260; J3475; J7030; J7120; Q9967

== ENCOUNTER 2022-03-11 14:44 | Emergency (ER) | payer BC ==
--- OUTSIDE RECORDS SUMMARY | 2022-03-11 14:50 | XMS REPORT | Continuity of Care Document ---
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 Notes: Do M emoria en 325 MG / 7-15 not exceed l Hydrocodone 21:12: 4gm/day of [place] Bitartrate 00 acetaminop 10 MG Oral hen. (Same Tablet as: [place] 325/10) Ondansetron No Notes: Ry veena 7-15 (Same as: l 21:12: Zofran) MEDICATION WASTE Product Size: 4 mg Product Wasted: ___ mg Lidocaine No Notes: Memori a Hydrochlori 7-15 Preservati l de 10 MG/ML 21:12: ve free. He rmann Injectable 00 (Same as: Solution Xylocaine MPF) Terbutaline No Notes: Ry veena 7-15 DO NOT l 21:12: USE IN [place] 00 MANAGER WATER WASTEWATER AREA (Same As: Brethine) Dermoplast No Notes: Memor ia 20% topical 15 (Same As: l spray 21:12: Dermoplast Master n 00 ) WASTE: Aerosol - Return to Pharmacy FOR EXTERNAL USE ONLY Oxytocin No Notes: Memoria 7-15 Hazardous l 21:12: Drug Group 3:Reproduc tive risk Hazardous Drug -- Refer to safe handling procedure PPE Matrix Cervidil No Notes: Memoria 7-15 (Same as: l 21:12: Cervidil) [place] Hazardous Drug Group 3:Reproduc tive risk Hazardous Drug -- Refer to safe handling procedure PPE Matrix Calcium No 1,000 mL, Memor ia Chloride -15 Rate: 125 l 0.0014 21:12: ml/hr, [place] MEQ/ML / 00 Infuse Potassium over: 8 Chloride hr, Route: 0.004 IV, Dosing MEQ/ML / Weight Sodium 94.091 kg, Chloride Total 0.103 Volume: MEQ/ML / 1,000, see Sodium special Lactate instructio 0.028 ns when MEQ/ML infusing Injectable 20 Units Solution of Oxytocin., Start date: 10/14/20 16:12:00 CDT, Duration: 30 day, Stop date: 11/13/20 16:11:00 CDT,... oxytocin 30 No Notes: Ry veena [...] Notes: Ry veena en 325 MG / 7-15 (Same as: l Hydrocodone 21:12: [place] Adrienne nn Bitartrate 00 325/5) Do 5 MG Oral not exceed Tablet 4gm/day of acetaminop hen. Acetaminoph No Notes: Do M emoria en 325 MG / 7-15 not exceed l Hydrocodone 21:12: 4gm/day of [place] Bitartrate 00 acetaminop 10 MG Oral hen. (Same Tablet as: [place] 325/10) Ondansetron No Notes: Ry veena 7-15 (Same as: l 21:12: Zofran) MEDICATION WASTE Product Size: 4 mg Product Wasted: ___ mg Lidocaine No Notes: Memori a Hydrochlori 7-15 Preservati l de 10 MG/ML 21:12: ve free. He rmann Injectable 00 (Same as: Solution Xylocaine MPF) Terbutaline No Notes: Ry veena 7-15 DO NOT l 21:12: USE IN MANAGER WATER WASTEWATER AREA (Same As: Brethine) Dermoplast No Notes: Memor ia 20% topical -15 (Same As: l spray 21:12: Dermoplast Master n 00 ) WASTE: Aerosol - Return to Pharmacy FOR EXTERNAL USE ONLY Oxytocin No Notes: Memoria 7-15 Hazardous l 21:12: Drug Group [place] 00 3:Reproduc tive risk Hazardous Drug -- Refer to safe handling procedure PPE Matrix Cervidil No Notes: Memoria 7-15 (Same as: l 21:12: Cervidil) Hazardous Drug Group 3:Reproduc tive risk Hazardous Drug -- Refer to safe handling procedure PPE Matrix Flexeril No 5 mg, Memoria 2-06 Route: PO, l 05:55: ONCE, [place] Dosing Weight 60.455, kg, Priority: STAT, Start date: 05/07/15 23:55:00, Stop date: 05/07/15 23:55:00 Ibuprofen 2016-0 No 800 mg, Memor ia 2 Route: PO, l 05:55: Drug form: [place] 00 TAB, ONCE, Dosing Weight 60.455, kg, Priority: STAT, Start date: 05/07/15 23:55:00, Stop date: 05/07/15 23:55:00 Flexeril 2016-0 No 5 mg, Memoria 05-08 Route: PO, l 05:55: ONCE, [place] 00 Dosing Weight 60.455, kg, Priority: STAT, Start date: 05/07/15 23:55:00, Stop date: 05/07/15 23:55:00 Ibuprofen 2016-0 No 800 mg, Memor ia 05-08 Route: PO, l 05:55: Drug form: [place] 00 TAB, ONCE, Dosing Weight 60.455, kg, Priority: STAT, Start date: 05/07/15 23:55:00, Stop date: 05/07/15 23:55:00 Cyclobenzap 2016 Yes 10 mg, PO, Memoria rine 2-06 TID, PRN l hydrochlori 05:54: Muscle Herm karlos de 10 MG 00 Spasm, X Oral Tablet 10 day, # [Flexeril] 20 tab, 0 Refill(s) Cyclobenzap 20160 Yes 10 mg, PO, Memoria rine 2-06 TID, PRN l hydrochlori 05:54: Muscle Herm karlos de 10 MG 00 Spasm, X Oral Tablet 10 day, # [Flexeril] 20 tab, 0 Refill(s) Acetaminoph No Notes: Ry veena en 325 MG / 05-08 (Same as: l Hydrocodone 05:19: [place] Adrienne nn Bitartrate 00 325/5) Do 5 MG Oral not exceed Tablet 4gm/day of [[place] acetaminop 5/325] hen. Acetaminoph No Notes: Ry veena en 325 MG / 05-08 (Same as: l Hydrocodone 05:19: [place] Adrienne nn Bitartrate 00 325/5) Do 5 MG Oral not exceed Tablet 4gm/day of [[place] acetaminop 5/325] hen. Zofran 2016-0 No 4 mg, Memoria 2-06 Route: l 02:27: IVP, Drug [place] 00 form: INJ, ONCE, Dosing Weight 60.455, kg, Priority: STAT, Start date: 05/07/15 20:27:00, Stop date: 05/07/15 20:27:00 Morphine 2016-0 No 6 mg, Memoria 2-06 Route: l 02:27: IVP, Drug [place] 00 form: INJ, ONCE, Dosing Weight 60.455, kg, Priority: STAT, Start date: 05/07/15 20:27:00, Stop date: 05/07/15 20:27:00 Zofran 2016-0 No 4 mg, Memoria 2-06 Route: l 02:27: IVP, Drug [place] 00 form: INJ, ONCE, Dosing Weight 60.455, kg, Priority: STAT, Start date: 05/07/15 20:27:00, Stop date: 05/07/15 20:27:00 Morphine 2016-0 No 6 mg, Memoria 2-06 Route: l 02:27: IVP, Drug [place] 00 form: INJ, ONCE, Dosing Weight 60.455, kg, Priority: STAT, Start date: 05/07/15 20:27:00, Stop date: 05/07/15 20:27:00 Vital Signs Vital Name Observation Time Observation Value Comments Source Temperature Oral (F) 2020-10-19 01:00:00 98.4 F [facility] [place] Heart Rate 2020-10-19 01:00:00 [facility] [place] Respitory Rate 2020-10-19 01:00:00 [facility] al [place] Systolic (mm Hg) 2020-10-19 01:00:00 Ry rial [place] Diastolic (mm Hg) 2020-10-19 01:00:00 Mem orial [place] Temperature Oral (F) 2020-10-18 21:50:00 98.5 F [facility] [place] Heart Rate 2020-10-18 21:50:00 [facility] [place] Respitory Rate 2020-10-18 21:50:00 [facility] al [place] Systolic (mm Hg) 2020-10-18 21:50:00 Ry rial [place] Diastolic (mm Hg) 2020-10-18 21:50:00 Mem o[facility] [place] Temperature Oral (F) 2020-10-18 16:31:00 98.5 F [facility] [place] Heart Rate 2020-10-18 16:31:00 [facility] [place] Respitory Rate 2020-10-18 16:31:00 [facility] [place] Systolic (mm Hg) 2020-10-18 16:31:00 Ry rial [place] Diastolic (mm Hg) 2020-10-18 16:31:00 Mem [facility] [place] Temperature Oral (F) 2020-10-18 05:50:00 98.5 F [facility] [place] Heart Rate 2020-10-18 05:50:00 [facility] [place] Respitory Rate 2020-10-18 05:50:00 Memori al [place] Systolic (mm Hg) 2020-10-18 05:50:00 Ry rial [place] Diastolic (mm Hg) 2020-10-18 05:50:00 [facility] [place] Heart Rate 2020-10-17 23:20:00 [facility] [place] Respitory Rate 2020-10-17 23:20:00 [facility] [place] Systolic (mm Hg) 2020-10-17 23:20:00 Ry rial [place] Diastolic (mm Hg) 2020-10-17 23:20:00 Mem [facility] [place] Heart Rate 2020-10-17 22:40:00 [facility] [place] Respitory Rate 2020-10-17 22:40:00 Memori al [place] Systolic (mm Hg) 2020-10-17 22:40:00 Ry rial [place] Diastolic (mm Hg) 2020-10-17 22:40:00 [facility] [place] Temperature Oral (F) 2020-10-17 21:15:00 98.3 F [facility] [place] Temperature Oral (F) 2020-10-17 17:15:00 97.8 F [facility] [place] Height 2020-10-14 20:46:00 165.1 cm [facility] [place] Weight 2020-10-14 20:46:00 [facility] [place] BMI Calculated 2020-10-14 20:46:00 [facility] [place] Heart Rate 2015-05-08 05:16:00 [facility] [place] Systolic (mm Hg) 2015-05-08 05:16:00 Ry rial [place] Diastolic (mm Hg) 2015-05-08 05:16:00 Mem orial [place] Heart Rate 2015-05-08 05:00:00 [facility] [place] Systolic (mm Hg) 2015-05-08 05:00:00 Ry rial [place] Diastolic (mm Hg) 2015-05-08 05:00:00 Mem orial [place] Systolic (mm Hg) 2015-05-08 04:45:00 Ry rial [place] Diastolic (mm Hg) 2015-05-08 04:45:00 Mem o[facility] [place] Heart Rate 2015-05-08 04:45:00 [facility] [place] Respitory Rate 2015-05-08 02:11:00 Ran arnett [place] Weight 2015-05-08 02:11:00 [facility] [place] BMI Calculated 2015-05-08 02:11:00 Ran al [place] Height 2015-05-08 02:11:00 165.1 cm Wendy [place] Procedures Procedure Date / Time Performed Performing Clinician Sour e Cholecystocecostomy 2018-04-02 00:00:00 [facility] [place] Encounters Start End Encounter Admission Attending Care Care Encounter Source Date/Time Date/Time Type Type Clinicians Facility Department ID 2021-07-20 2021-07-20 [facility] [address] 06:01:00 06:01:00 RADHA [facility] 2020-10-14 2020-10-19 Inpatient nullFlavo [facility] [id number] Memoria 18:55:00 02:25:00 r [place] 56 l [facility] 2020-10-14 2020-10-19 Inpatient nullFlavo [facility] [id number] Memoria 18:55:00 02:25:00 r [place] 56 l [facility] 2020-10-14 2020-10-18 Outpatient Luigi [facility] [id number] 13:55:00 21:25:00 Caprice Jean-Baptiste 2020-10-14 2020-10-18 Inpatient U LUIGI [facility] [address] [facility] 13:55:00 21:25:00 CAPRICE 2020-10-14 2020-10-14 Outpatient Luigi [facility] [id number] 13:55:00 13:55:00 Caprice Jean-Baptiste 2015-05-08 2015-05-08 EC nullFlavo [facility] [id number] Memoria 02:06:00 06:09:00 Emergency r [place] 38 l [facility] 2015-05-08 2015-05-08 EC nullFlavo [facility] [id number] Memoria 02:06:00 06:09:00 Emergency r [place] 38 l [facility] 2015-05-07 2015-05-08 Outpatient [place], [facility] [id number] 20:06:00 00:09:00 Agapito Rosado Results Test Description Test Time Test Comments Results Result Comments Source HEMATOLOGY 2020-10-18 02:43:00 Test Item Value Reference Range Interpretation Comme nts Hgb (test code = Hgb) 9.6 12.0-16.0 [id number] 02:43:00 Test Item Value Reference Range Interpretation Comments Hct (test code = Hct) 28.4 36.0-48.0 [id number] 02:43:00 Test Item Value Reference Range Interpretation Comments Hgb (test code = Hgb) 9.6 12.0-16.0 [id number] 02:43:00 Test Item Value Reference Range Interpretation Comments Hct (test code = Hct) 28.4 36.0-48.0 [facility]2021-07-18 04:43:00 Test Item Value Reference Range Interpretation Comments UA Sq Epi (test code = UA Sq Occasional /LPF Epi) [facility]2021-07-18 04:43:00 Test Item Value Reference Range Interpretation Comments UA WBC (test code = 1 See_Comment [Automa jacob message] The UA WBC) system which ge nerated this result transmit jacob reference range : <=5. The reference range was not used to interpr et this result as deniz l/abnormal. [facility]2021-07-18 04:43:00 Test Item Value Reference Range Interpretation Comments UA RBC (test code = 1 See_Comment [Automa jacob message] The UA RBC) system which ge nerated this result transmit jacob reference range : <=2. The reference range was not used to interpr et this result as deniz l/abnormal. [facility] [id number] 04:43:00 Test Item Value Reference Range Interpretation Comments UA Color (test code = Yellow *NA*(10/16/20 UA Color) 11:43 PM) [facility] [id number] 04:43:00 Test Item Value Reference Range Interpretation Comments UA Turbidity (test code = Clear (10/16/20 11:43 UA Turbidity) PM) [facility] [id number] 04:43:00 Test Item Value Reference Range Interpretation Comments UA Spec Grav (test code = UA Spec 1.010 1 Grav) [facility] AND [id number] 04:43:00 Test Item Value Reference Range Interpretation Comments UA pH (test code = UA pH) 6.5 1 5.0-8.0 [facility] AND [id number] 04:43:00 Test Item Value Reference Range Interpretation Comments UA Protein (test code = UA Negative mg/dL Protein) [facility] AND [id number] 04:43:00 Test Item Value Reference Range Interpretation Comments UA Glucose (test code = UA Negative mg/dL Glucose) [facility] AND [id number] 04:43:00 Test Item Value Reference Range Interpretation Comments UA Ketones (test code = UA Trace mg/dL Ketones) [facility] AND [id number] 04:43:00 Test Item Value Reference Range Interpretation Comments UA Bili (test code = Negative *NA*(10/16/20 UA Bili) 11:43 PM) [facility] AND [id number] 04:43:00 Test Item Value Reference Range Interpretation Comments UA Blood (test code = Negative (10/16/20 11:43 UA Blood) PM) [facility] AND [id number] 04:43:00 Test Item Value Reference Range Interpretation Comments UA Urobilinogen (test code = UA 2.0 0.1-1.0 Urobilinogen) [facility] AND [id number] 04:43:00 Test Item Value Reference Range Interpretation Comments UA Sq Epi (test code = UA Sq Occasional /LPF Epi) [facility] AND [id number] 04:43:00 Test Item Value Reference Range Interpretation Comments UA Nitrite (test code Negative (10/16/20 11:43 = UA Nitrite) PM) [facility] [id number] 04:43:00 Test Item Value Reference Range Interpretation Comments UA WBC (test code = 1 See_Comment [Automa jacob message] The UA WBC) system which ge nerated this result transmit jacob reference range : <=5. The reference range was not used to interpr et this result as deniz l/abnormal. [facility] [id number] 04:43:00 Test Item Value Reference Range Interpretation Comments UA RBC (test code = 1 See_Comment [Automa jacob message] The UA RBC) system which ge nerated this result transmit jacob reference range : <=2. The reference range was not used to interpr et this result as deniz l/abnormal. [facility] [id number] 04:43:00 Test Item Value Reference Range Interpretation Comments UA Color (test code = Yellow *NA*(10/16/20 UA Color) 11:43 PM) [facility] [id number] 04:43:00 Test Item Value Reference Range Interpretation Comments UA Turbidity (test code = Clear (10/16/20 11:43 UA Turbidity) PM) [facility] AND [id number] 04:43:00 Test Item Value Reference Range Interpretation Comments UA Spec Grav (test code = UA Spec 1.010 1 Grav) [facility] [id number] 04:43:00 Test Item Value Reference Range Interpretation Comments UA pH (test code = UA pH) 6.5 1 5.0-8.[address] [facility] [address] [id number] 04:43:00 Test Item Value Reference Range Interpretation Comments UA Protein (test code = UA Negative mg/dL Protein) [facility] AND [id number] 04:43:00 Test Item Value Reference Range Interpretation Comments UA Glucose (test code = UA Negative mg/dL Glucose) [facility] AND [id number] 04:43:00 Test Item Value Reference Range Interpretation Comments UA Ketones (test code = UA Trace mg/dL Ketones) [facility] AND [id number] 04:43:00 Test Item Value Reference Range Interpretation Comments UA Bili (test code = Negative *NA*(10/16/20 UA Bili) 11:43 PM) [facility] AND [id number] 04:43:00 Test Item Value Reference Range Interpretation Comments UA Leuk Est (test Negative (10/16/20 11:43 code = UA Leuk Est) PM) [facility] AND [id number] 04:43:00 Test Item Value Reference Range Interpretation Comments UA Blood (test code = Negative (10/16/20 11:43 UA Blood) PM) [facility] AND [id number] 04:43:00 Test Item Value Reference Range Interpretation Comments UA Urobilinogen (test code = UA 2.0 0.1-1.0 Urobilinogen) [facility] AND [id number] 04:43:00 Test Item Value Reference Range Interpretation Comments UA Nitrite (test code Negative (10/16/20 11:43 = UA Nitrite) PM) [facility] AND [id number] 04:43:00 Test Item Value Reference Range Interpretation Comments UA Leuk Est (test Negative (10/16/20 11:43 code = UA Leuk Est) PM) [facility]2021-07-18 04:37:00 Test Item Value Reference Range Interpretation Comments Glucose Lvl (test code = Glucose Lvl) 70 70-99 [facility]2021-07-18 04:37:00 Test Item Value Reference Range Interpretation Comments BUN (test code = BUN) 6 7-22 [facility]2021-07-18 04:37:00 Test Item Value Reference Range Interpretation Comments Creatinine Lvl (test code = Creatinine 0.54 0.50-1.40 Lvl) [facility]2021-07-18 04:37:00 Test Item Value Reference Range Interpretation Comments Sodium Lvl (test code = Sodium Lvl) 138 135-145 [facility]2021-07-18 04:37:00 Test Item Value Reference Range Interpretation Comments Potassium Lvl (test code = Potassium 3.4 3.5-5.1 Lvl) [facility]2021-07-18 04:37:00 Test Item Value Reference Range Interpretation Comments Chloride Lvl (test code = Chloride Lvl) 107 95-109 [facility]2021-07-18 04:37:00 Test Item Value Reference Range Interpretation Comments Glucose Lvl (test code = Glucose Lvl) 70 70-99 [facility] [id number] 04:37:00 Test Item Value Reference Range Interpretation Comments CO2 (test code = CO2) 22 24-32 [place] [id number] 04:37:00 Test Item Value Reference Range Interpretation Comments Calcium Lvl (test code = Calcium Lvl) 8.2 8.5-10.5 [facility] [id number] 04:37:00 Test Item Value Reference Range Interpretation Comments Total Protein (test code = Total 5.5 6.4-8.4 Protein) [facility] [id number] 04:37:00 Test Item Value Reference Range Interpretation Comments Albumin Lvl (test code = Albumin Lvl) 2.0 3.5-5.0 [facility] [id number] 04:37:00 Test Item Value Reference Range Interpretation Comments ALT (test code = ALT) 24 See_Comment [Auto mated message] The system which ge nerated this result transmit jacob reference range : <=65. The reference range was not used to interpr et this result as deniz l/abnormal. [facility] [id number] 04:37:00 Test Item Value Reference Range Interpretation Comments AST (test code = AST) 28 See_Comment [Auto mated message] The system which ge nerated this result transmit jacob reference range : <=37. The reference range was not used to interpr et this result as deniz l/abnormal. [facility] [id number] 04:37:00 Test Item Value Reference Range Interpretation Comments Alk Phos (test code = Alk Phos) 113 39-136 [facility] [id number] 04:37:00 Test Item Value Reference Range Interpretation Comments Bili Total (test code = Bili Total) 0.6 0.2-1.3 [facility] [id number] 04:37:00 Test Item Value Reference Range Interpretation Comments AGAP (test code = AGAP) 12.4 10.0-20.0 [facility] [id number] 04:37:00 Test Item Value Reference Range Interpretation Comments B/C Ratio (test code = B/C Ratio) 11 1 6-25 [facility]2021-07-18 04:37:00 Test Item Value Reference Range Interpretation Comments BUN (test code = BUN) 6 7-22 [place] [id number] 04:37:00 Test Item Value Reference Range Interpretation Comments Globulin (test code = Globulin) 3.5 2.7-4.2 [place] [id number] 04:37:00 Test Item Value Reference Range Interpretation Comments A/G Ratio (test code = A/G Ratio) 0.6 1 0.7-1.6 [facility]2021-07-18 04:37:00 Test Item Value Reference Range Interpretation Comments eGFR (test code = eGFR) 130 [facility]2021-07-18 04:37:00 Test Item Value Reference Range Interpretation Comments Mg Therap (LD) (test code = Mg Therap 1.6 4.5-7.5 (LD)) [id number] 04:37:00 Test Item Value Reference Range Interpretation Comments WBC (test code = WBC) 11.1 3.7-10.4 [id number] 04:37:00 Test Item Value Reference Range Interpretation Comments RBC (test code = RBC) 3.25 4.20-5.40 [id number] 04:37:00 Test Item Value Reference Range Interpretation Comments Hgb (test code = Hgb) 9.6 12.0-16.0 [place] [id number] 04:37:00 Test Item Value Reference Range Interpretation Comments Hct (test code = Hct) 28.2 36.0-48.0 [place] [id number] 04:37:00 Test Item Value Reference Range Interpretation Comments MCV (test code = MCV) 86.5 80.0-98.0 [place] [id number] 04:37:00 Test Item Value Reference Range Interpretation Comments MCH (test code = MCH) 29.6 pg 27.0-31.0 [facility]2021-07-18 04:37:00 Test Item Value Reference Range Interpretation Comments Creatinine Lvl (test code = Creatinine 0.54 0.50-1.40 Lvl) [place] [id number] 04:37:00 Test Item Value Reference Range Interpretation Comments MCHC (test code = MCHC) 34.2 32.0-36.0 [place] [id number] 04:37:00 Test Item Value Reference Range Interpretation Comments RDW (test code = RDW) 14.9 11.5-14.5 [place] 808231-07-18 04:37:00 Test Item Value Reference Range Interpretation Comments Platelet (test code = Platelet) 234 133-450 [id number] 04:37:00 Test Item Value Reference Range Interpretation Comments MPV (test code = MPV) 7.7 7.4-10.4 [place] 808231-07-18 04:37:00 Test Item Value Reference Range Interpretation Comments Segs (test code = Segs) 77.8 45.0-75.0 [place] 808231-07-18 04:37:00 Test Item Value Reference Range Interpretation Comments Lymphocytes (test code = Lymphocytes) 14.3 20.0-40.0 [id number] 04:37:00 Test Item Value Reference Range Interpretation Comments Monocytes (test code = Monocytes) 7.5 2.0-12.0 [id number] 04:37:00 Test Item Value Reference Range Interpretation Comments Eosinophils (test code = 0.3 See_Comment [A utomated message] The Eosinophils) system which ge nerated this result tra nsmitted reference range : <=4.0. The reference r kathe was not used to int erpret this result as normal/abnormal . [id number] 04:37:00 Test Item Value Reference Range Interpretation Comments Basophils (test code = 0.1 See_Comment [Aut omated message] The Basophils) system which ge nerated this result tra nsmitted reference range : <=1.0. The reference r kathe was not used to int erpret this result as normal/abnormal . [place] 808231-07-18 04:37:00 Test Item Value Reference Range Interpretation Comments Neutrophils # (test code = Neutrophils 8.6 1.5-8.1 #) [facility]2021-07-18 04:37:00 Test Item Value Reference Range Interpretation Comments Sodium Lvl (test code = Sodium Lvl) 138 135-145 [place] 808231-07-18 04:37:00 Test Item Value Reference Range Interpretation Comments Lymphocytes # (test code = Lymphocytes 1.6 1.0-5.5 #) [place] [id number] 04:37:00 Test Item Value Reference Range Interpretation Comments Monocytes # (test code 0.8 See_Comment [Aut omated message] The = Monocytes #) system which generated this result tra nsmitted reference range : <=0.8. The reference r kathe was not used to int erpret this result as normal/abnormal . [facility] [id number] 04:37:00 Test Item Value Reference Range Interpretation Comments Potassium Lvl (test code = Potassium 3.4 3.5-5.1 Lvl) [place] 790161-07-18 04:37:00 Test Item Value Reference Range Interpretation Comments Chloride Lvl (test code = Chloride Lvl) 107 95-109 [place] 790161-07-18 04:37:00 Test Item Value Reference Range Interpretation Comments CO2 (test code = CO2) 22 24-32 [place] 790161-07-18 04:37:00 Test Item Value Reference Range Interpretation Comments Calcium Lvl (test code = Calcium Lvl) 8.2 8.5-10.5 [place] 790161-07-18 04:37:00 Test Item Value Reference Range Interpretation Comments Total Protein (test code = Total 5.5 6.4-8.4 Protein) [place] 790161-07-18 04:37:00 Test Item Value Reference Range Interpretation Comments Albumin Lvl (test code = Albumin Lvl) 2.0 3.5-5.0 [place] 790161-07-18 04:37:00 Test Item Value Reference Range Interpretation Comments ALT (test code = ALT) 24 See_Comment [Auto mated message] The system which ge nerated this result transmit jacob reference range : <=65. The reference range was not used to interpr et this result as deniz l/abnormal. [facility] [id number] 04:37:00 Test Item Value Reference Range Interpretation Comments AST (test code = AST) 28 See_Comment [Auto mated message] The system which ge nerated this result transmit jacob reference range : <=37. The reference range was not used to interpr et this result as deniz l/abnormal. [place] 790161-07-18 04:37:00 Test Item Value Reference Range Interpretation Comments Alk Phos (test code = Alk Phos) 113 39-136 [place] 790161-07-18 04:37:00 Test Item Value Reference Range Interpretation Comments Bili Total (test code = Bili Total) 0.6 0.2-1.3 [place] 790161-07-18 04:37:00 Test Item Value Reference Range Interpretation Comments AGAP (test code = AGAP) 12.4 10.0-20.0 [place] 790161-07-18 04:37:00 Test Item Value Reference Range Interpretation Comments B/C Ratio (test code = B/C Ratio) 11 1 6-25 [place] 790161-07-18 04:37:00 Test Item Value Reference Range Interpretation Comments Globulin (test code = Globulin) 3.5 2.7-4.2 [place] 790161-07-18 04:37:00 Test Item Value Reference Range Interpretation Comments A/G Ratio (test code = A/G Ratio) 0.6 1 0.7-1.6 [place] 790161-07-18 04:37:00 Test Item Value Reference Range Interpretation Comments eGFR (test code = eGFR) 130 [facility]2021-07-18 04:37:00 Test Item Value Reference Range Interpretation Comments Mg Therap (LD) (test code = Mg Therap 1.6 4.5-7.5 (LD)) [place] 808231-07-18 04:37:00 Test Item Value Reference Range Interpretation Comments WBC (test code = WBC) 11.1 3.7-10.4 [place] 808231-07-18 04:37:00 Test Item Value Reference Range Interpretation Comments RBC (test code = RBC) 3.25 4.20-5.40 [place] 808231-07-18 04:37:00 Test Item Value Reference Range Interpretation Comments Hgb (test code = Hgb) 9.6 12.0-16.0 [address]07-18 04:37:00 Test Item Value Reference Range Interpretation Comments Hct (test code = Hct) 28.2 36.0-48.0 [place] 808231-07-18 04:37:00 Test Item Value Reference Range Interpretation Comments MCV (test code = MCV) 86.5 80.0-98.0 [place] 808231-07-18 04:37:00 Test Item Value Reference Range Interpretation Comments MCH (test code = MCH) 29.6 pg 27.0-31.0 [place] 808231-07-18 04:37:00 Test Item Value Reference Range Interpretation Comments MCHC (test code = MCHC) 34.2 32.0-36.0 [place] 808231-07-18 04:37:00 Test Item Value Reference Range Interpretation Comments RDW (test code = RDW) 14.9 11.5-14.5 [place] 808231-07-18 04:37:00 Test Item Value Reference Range Interpretation Comments Platelet (test code = Platelet) 234 133-450 [facility]aleQdzjygvIBUAZFDBHW1224-57-01 04:37:00 Test Item Value Reference Range Interpretation Comments MPV (test code = MPV) 7.7 7.4-10.4 [place] 808231-07-18 04:37:00 Test Item Value Reference Range Interpretation Comments Segs (test code = Segs) 77.8 45.0-75.0 [place] 808231-07-18 04:37:00 Test Item Value Reference Range Interpretation Comments Lymphocytes (test code = Lymphocytes) 14.3 20.0-40.0 [place] 808231-07-18 04:37:00 Test Item Value Reference Range Interpretation Comments Monocytes (test code = Monocytes) 7.5 2.0-12.0 [place] [address]-07-18 04:37:00 Test Item Value Reference Range Interpretation Comments Eosinophils (test code = 0.3 See_Comment [A utomated message] The Eosinophils) system which ge nerated this result tra nsmitted reference range : <=4.0. The reference r kathe was not used to int erpret this result as normal/abnormal . [place] 808231-07-18 04:37:00 Test Item Value Reference Range Interpretation Comments Basophils (test code = 0.1 See_Comment [Aut omated message] The Basophils) system which ge nerated this result tra nsmitted reference range : <=1.0. The reference r kathe was not used to int erpret this result as normal/abnormal . [place] 808231-07-18 04:37:00 Test Item Value Reference Range Interpretation Comments Neutrophils # (test code = Neutrophils 8.6 1.5-8.1 #) [facility]aleLjlddacGIFFHOIGWH2287-04-32 04:37:00 Test Item Value Reference Range Interpretation Comments Lymphocytes # (test code = Lymphocytes 1.6 1.0-5.5 #) [facility]aleQsoctjoZHWGEDHKEC3108-48-05 04:37:00 Test Item Value Reference Range Interpretation Comments Monocytes # (test code 0.8 See_Comment [Aut omated message] The = Monocytes #) system which generated this result tra nsmitted reference range : <=0.8. The reference r kathe was not used to int erpret this result as normal/abnormal . [facility]2021-07-15 22:18:00 Test Item Value Reference Range Interpretation Comments U Creatinine (test code = U 108.00 Creatinine) [facility]2021-07-15 22:18:00 Test Item Value Reference Range Interpretation Comments U Protein (test code = U Protein) 24.3 [facility]2021-07-15 22:18:00 Test Item Value Reference Range Interpretation Comments U Prot/Creat (test code = U 0.22 1 Prot/Creat) [facility]2021-07-15 22:18:00 Test Item Value Reference Range Interpretation Comments U Creatinine (test code = U 108.00 Creatinine) [place] 429091-07-15 22:18:00 Test Item Value Reference Range Interpretation Comments U Protein (test code = U Protein) 24.3 [facility]2021-07-15 22:18:00 Test Item Value Reference Range Interpretation Comments U Prot/Creat (test code = U 0.22 1 Prot/Creat) [facility]2021-07-15 21:28:00 Test Item Value Reference Range Interpretation Comments eGFR (test code = eGFR) 124 [facility] [id number] 21:28:00 Test Item Value Reference Range Interpretation Comments Creatinine Lvl (test code = Creatinine 0.62 0.50-1.40 Lvl) [place] 790161-07-15 21:28:00 Test Item Value Reference Range Interpretation Comments Uric Acid (test code = Uric Acid) 4.2 2.5-7.0 [place] 790161-07-15 21:28:00 Test Item Value Reference Range Interpretation Comments LDH (test code = LDH) 183 98-192 [place] 790161-07-15 21:28:00 Test Item Value Reference Range Interpretation Comments ALT (test code = ALT) 26 See_Comment [Auto mated message] The system which ge nerated this result transmit jacob reference range : <=65. The reference range was not used to interpr et this result as deniz l/abnormal. [place] 790161-07-15 21:28:00 Test Item Value Reference Range Interpretation Comments AST (test code = AST) 23 See_Comment [Auto mated message] The system which ge nerated this result transmit jacob reference range : <=37. The reference range was not used to interpr et this result as deniz l/abnormal. [facility]aleNyrgajyVWJIAVBKCZ5532-24-93 21:28:00 Test Item Value Reference Range Interpretation Comments WBC (test code = WBC) 9.1 3.7-10.4 [facility]aleJwefkdtTWJKHRBRPV1940-74-62 21:28:00 Test Item Value Reference Range Interpretation Comments RBC (test code = RBC) 4.07 4.20-5.40 [facility]aleCxrcpcjCEJGYPOCEV5625-84-61 21:28:00 Test Item Value Reference Range Interpretation Comments Hgb (test code = Hgb) 12.1 12.0-16.0 [place] 808231-07-15 21:28:00 Test Item Value Reference Range Interpretation Comments Hct (test code = Hct) 35.3 36.0-48.0 [place] 808231-07-15 21:28:00 Test Item Value Reference Range Interpretation Comments MCV (test code = MCV) 86.8 80.0-98.0 [place] 808231-07-15 21:28:00 Test Item Value Reference Range Interpretation Comments MCH (test code = MCH) 29.6 pg 27.0-31.0 [place] [address]-07-15 21:28:00 Test Item Value Reference Range Interpretation Comments MCHC (test code = MCHC) 34.1 32.0-36.0 [place] 808231-07-15 21:28:00 Test Item Value Reference Range Interpretation Comments RDW (test code = RDW) 15.1 11.5-14.5 [place] 808231-07-15 21:28:00 Test Item Value Reference Range Interpretation Comments Platelet (test code = Platelet) 282 133-450 [facility] SunnyvaleFuxqrsnKPKKTTOTWC6518-72-27 21:28:00 Test Item Value Reference Range Interpretation Comments MPV (test code = MPV) 7.9 7.4-10.4 [place] 808231-07-15 21:28:00 Test Item Value Reference Range Interpretation Comments Segs (test code = Segs) 69.9 45.0-75.0 [place] 808231-07-15 21:28:00 Test Item Value Reference Range Interpretation Comments Lymphocytes (test code = Lymphocytes) 22.6 20.0-40.0 [place] 808231-07-15 21:28:00 Test Item Value Reference Range Interpretation Comments Monocytes (test code = Monocytes) 6.6 2.0-12.0 [place] 808231-07-15 21:28:00 Test Item Value Reference Range Interpretation Comments Eosinophils (test code = 0.7 See_Comment [A utomated message] The Eosinophils) system which ge nerated this result tra nsmitted reference range : <=4.0. The reference r kathe was not used to int erpret this result as normal/abnormal . [place] 808231-07-15 21:28:00 Test Item Value Reference Range Interpretation Comments Basophils (test code = 0.2 See_Comment [Aut omated message] The Basophils) system which ge nerated this result tra nsmitted reference range : <=1.0. The reference r kathe was not used to int erpret this result as normal/abnormal . [place] 808231-07-15 21:28:00 Test Item Value Reference Range Interpretation Comments Neutrophils # (test code = Neutrophils 6.3 1.5-8.1 #) [place] 808231-07-15 21:28:00 Test Item Value Reference Range Interpretation Comments Lymphocytes # (test code = Lymphocytes 2.0 1.0-5.5 #) [facility]aleYlyatuuGFUVREITUU9071-68-30 21:28:00 Test Item Value Reference Range Interpretation Comments Monocytes # (test code 0.6 See_Comment [Aut omated message] The = Monocytes #) system which generated this result tra nsmitted reference range : <=0.8. The reference r kathe was not used to int erpret this result as normal/abnormal . [place] 808231-07-15 21:28:00 Test Item Value Reference Range Interpretation Comments Eosinophils # (test code 0.1 See_Comment [A utomated message] The = Eosinophils #) system whic h generated this result tra nsmitted reference range : <=0.5. The reference r kathe was not used to int erpret this result as normal/abnormal . [facility]YpbpxvdSVXRRTXSWB6959-75-04 21:28:00 Test Item Value Reference Range Interpretation Comments Hep Bs Ag (test code Negative *NA*(10/14/20 = Hep Bs Ag) 4:28 PM) [facility] HospitalDquvevxLETWTNIJLX0641-44-57 21:28:00 Test Item Value Reference Range Interpretation Comments HIV. (test code = Negative *NA*(10/14/20 HIV.) 4:28 PM) [facility] HospitalKnwmylcXTXGWFFAIP9360-28-40 21:28:00 Test Item Value Reference Range Interpretation Comments Treponemal Ab (test code Non-Reactive = Treponemal Ab) *NA*(10/14/20 4:28 PM) [facility] [id number] 21:28:00 Test Item Value Reference Range Interpretation Comments eGFR (test code = eGFR) 124 [facility] [id number] 21:28:00 Test Item Value Reference Range Interpretation Comments Creatinine Lvl (test code = Creatinine 0.62 0.50-1.40 Lvl) [facility] [id number] 21:28:00 Test Item Value Reference Range Interpretation Comments Uric Acid (test code = Uric Acid) 4.2 2.5-7.0 [facility] [id number] 21:28:00 Test Item Value Reference Range Interpretation Comments LDH (test code = LDH) 183 98-192 [facility] [id number] 21:28:00 Test Item Value Reference Range Interpretation Comments ALT (test code = ALT) 26 See_Comment [Auto mated message] The system which ge nerated this result transmit jacob reference range : <=65. The reference range was not used to interpr et this result as deniz l/abnormal. [facility]2021-07-15 21:28:00 Test Item Value Reference Range Interpretation Comments AST (test code = AST) 23 See_Comment [Auto mated message] The system which ge nerated this result transmit jacob reference range : <=37. The reference range was not used to interpr et this result as deniz l/abnormal. [facility]aleJznjmkqEDHSBGNCGE2498-76-03 21:28:00 Test Item Value Reference Range Interpretation Comments WBC (test code = WBC) 9.1 3.7-10.4 [facility]aleOvzrpzaOOBLWYFVCV9613-26-04 21:28:00 Test Item Value Reference Range Interpretation Comments RBC (test code = RBC) 4.07 4.20-5.40 [facility]valeRzduuxkVEONPFJDGN5054-15-49 21:28:00 Test Item Value Reference Range Interpretation Comments Hgb (test code = Hgb) 12.1 12.0-16.0 [facility]aleBsqplnlRIZBQSTGZJ6868-34-42 21:28:00 Test Item Value Reference Range Interpretation Comments Hct (test code = Hct) 35.3 36.0-48.0 [facility]valeUalnaluDWHJXQPPRK8894-68-93 21:28:00 Test Item Value Reference Range Interpretation Comments MCV (test code = MCV) 86.8 80.0-98.0 [facility]aleXjjbulkREJTHDKMWX8798-52-38 21:28:00 Test Item Value Reference Range Interpretation Comments MCH (test code = MCH) 29.6 pg 27.0-31.0 [facility]valeDzybgnqOIKPSUCVCU1315-82-28 21:28:00 Test Item Value Reference Range Interpretation Comments MCHC (test code = MCHC) 34.1 32.0-36.0 [facility]valeRcbezcvUIVFDGRRCQ0519-20-46 21:28:00 Test Item Value Reference Range Interpretation Comments RDW (test code = RDW) 15.1 11.5-14.5 [facility]valeThknuulWUJYEHTQKI2509-67-23 21:28:00 Test Item Value Reference Range Interpretation Comments Platelet (test code = Platelet) 282 133-450 [place] 808231-07-15 21:28:00 Test Item Value Reference Range Interpretation Comments MPV (test code = MPV) 7.9 7.4-10.4 [place] 808231-07-15 21:28:00 Test Item Value Reference Range Interpretation Comments Segs (test code = Segs) 69.9 45.0-75.0 [place] 808231-07-15 21:28:00 Test Item Value Reference Range Interpretation Comments Lymphocytes (test code = Lymphocytes) 22.6 20.0-40.0 [place] 808231-07-15 21:28:00 Test Item Value Reference Range Interpretation Comments Monocytes (test code = Monocytes) 6.6 2.0-12.0 [place] 808231-07-15 21:28:00 Test Item Value Reference Range Interpretation Comments Eosinophils (test code = 0.7 See_Comment [A utomated message] The Eosinophils) system which ge nerated this result tra nsmitted reference range : <=4.0. The reference r kathe was not used to int erpret this result as normal/abnormal . [facility]aleSahkztcJQVWNFOYJF9106-47-65 21:28:00 Test Item Value Reference Range Interpretation Comments Basophils (test code = 0.2 See_Comment [Aut omated message] The Basophils) system which ge nerated this result tra nsmitted reference range : <=1.0. The reference r kathe was not used to int erpret this result as normal/abnormal . [facility]aleNvtiitiOCQHVHBJJD8434-97-34 21:28:00 Test Item Value Reference Range Interpretation Comments Neutrophils # (test code = Neutrophils 6.3 1.5-8.1 #) [place] 808231-07-15 21:28:00 Test Item Value Reference Range Interpretation Comments Lymphocytes # (test code = Lymphocytes 2.0 1.0-5.5 #) [place] 808231-07-15 21:28:00 Test Item Value Reference Range Interpretation Comments Monocytes # (test code 0.6 See_Comment [Aut omated message] The = Monocytes #) system which generated this result tra nsmitted reference range : <=0.8. The reference r kathe was not used to int erpret this result as normal/abnormal . [place] 808231-07-15 21:28:00 Test Item Value Reference Range Interpretation Comments Eosinophils # (test code 0.1 See_Comment [A utomated message] The = Eosinophils #) system whic h generated this result tra nsmitted reference range : <=0.5. The reference r kathe was not used to int erpret this result as normal/abnormal . [facility] HospitalYpamedqWUYSAMCTJY8563-55-31 21:28:00 Test Item Value Reference Range Interpretation Comments Hep Bs Ag (test code Negative *NA*(10/14/20 = Hep Bs Ag) 4:28 PM) [facility] HospitalMqhnaszICCCSTJNKG1685-41-54 21:28:00 Test Item Value Reference Range Interpretation Comments HIV. (test code = Negative *NA*(10/14/20 HIV.) 4:28 PM) [facility] HospitalSnzifgfHNFJHINKRC2704-34-95 21:28:00 Test Item Value Reference Range Interpretation Comments Treponemal Ab (test code Non-Reactive = Treponemal Ab) *NA*(10/14/20 4:28 PM) [facility] [employer] [id number] 21:00:00 Test Item Value Reference Range Interpretation Comments Antibody Scrn (test Negative (10/14/20 4:00 code = Antibody Scrn) PM) [facility] [employer] [id number] 21:00:00 Test Item Value Reference Range Interpretation Comments ABO/Rh (test code = ABO/Rh) O POS [facility] [employer] [id number] 21:00:00 Test Item Value Reference Range Interpretation Comments Antibody Scrn (test Negative (10/14/20 4:00 code = Antibody Scrn) PM) [facility] [employer] [id number] 21:00:00 Test Item Value Reference Range Interpretation Comments ABO/Rh (test code = ABO/Rh) O POS [facility] HospitalNjogyixJKBUQDVSKR6639-73-47 19:11:00 Test Item Value Reference Range Interpretation Comments Coronavirus (COVID-19) Not Detected (10/14/20 MECCA (test code = 2:11 PM) Coronavirus (COVID-19) MECCA) [facility] HospitalMhwkytjDFDNKWNICH3748-86-65 19:11:00 Test Item Value Reference Range Interpretation Comments Coronavirus (COVID-19) Not Detected (10/14/20 MECCA (test code = 2:11 PM) Coronavirus (COVID-19) MECCA) [facility]
[2022-03-11 15:43] LABS: Absolute Lymphocytes (CBC) 1.7 K/uL (0.7-4.9); Hematocrit 37.8 % (36.0-45.0); Lymphocytes % 30.1 % (15.3-44.8); MCV 87.5 fL (80-100); MPV 6.9 fL (7.6-11.3); RBC Red Blood Cell Count 4.32 M/uL (3.86-4.86)
[2022-03-11] MEDS ORDERED: ONDANSETRON 4 MG/2 ML VIAL ONE (15:45)
[2022-03-11] MEDS ORDERED: NA CHLORIDE 0.9% 1,000 ML ONE (15:45)
[2022-03-11 16:07] LABS: ALT/SGPT 75 U/L (13-56); AST/SGOT 39 U/L (15-37); Albumin 3.3 g/dL (3.4-5.0); Alkaline Phosphatase 84 U/L (45-117); BUN Blood Urea Nitrogen 11 mg/dL (7-18); Bicarbonate 29 mmol/L (21-32); Bilirubin Total 0.4 mg/dL (0.2-1.0); Glomerular Filtration Rate 89 ml/min (=/>90); Glucose Level 105 mg/dL (74-106); Magnesium 2.2 mg/dL (1.6-2.4); Potassium 3.6 mmol/L (3.5-5.1); Protein, Total 7.3 g/dL (6.4-8.2); Sodium Level 140 mmol/L (136-145)
[2022-03-11 16:07] LABS: Urine Blood Negative (Negative); Urine Glucose Negative (Negative); Urine Protein Negative (Negative); Urine Specific Gravity 1.025 (1.005-1.030)
[2022-03-11 16:11] LABS: Troponin High Sensitivity < 3.0 pg/mL (<58.9)
--- NOTE | 2022-03-11 16:16 | RAD REPORT ---
EXAM DESCRIPTION: RAD - Chest Single View - 03/11/2022 4:02 pm CLINICAL HISTORY: near syncope COMPARISON: <Comparisons> FINDINGS: Lines: None. Lungs: No evidence of edema or pneumonia. Pleural: No significant pleural effusions or pneumothorax. Cardiac: The heart size is within normal limits. Mediastinum: Within normal limits. Bones: No acute fractures. Other: None IMPRESSION: No acute cardiopulmonary disease.
[2022-03-11 16:27] LABS: Barbiturates NEGATIVE (NEGATIVE); Benzodiazepines NEGATIVE (NEGATIVE); Cocaine NEGATIVE (NEGATIVE); METHAMPHETAM NEGATIVE (NEGATIVE); Methadone NEGATIVE (NEGATIVE); Opiates NEGATIVE (NEGATIVE); Phencyclidine NEGATIVE (NEGATIVE); THC Cannibis NEGATIVE (NEGATIVE)
[2022-03-11 16:38] LABS: SARS-COV-2 RT PCR NEGATIVE (NEGATIVE)
[2022-03-11 16:48] LABS: Urine Crystals Unidentified Few /HPF (None Seen); Urine RBC <5 /HPF (None Seen); Urine WBC Clump Rare /HPF (None Seen)
--- NOTE | 2022-03-11 16:51 | EDPHYS ---
Physician Documentation [facility] Name: Chantelle Hardwick Age: 31 yrs Sex: Female : 1990 Arrival Date: 03/11/2022 Time: 14:45 Bed 15 Private MD: ED Physician Luis Velasco HPI: 03/11 16:52 This 31 yrs old Female presents to ER via Ambulatory with complaints of Dizziness, rt Nausea, Fever. 16:54 The patient presents with feeling faint, lightheadedness. Onset: The symptoms/episode rt began/occurred this morning. Modifying factors: The symptoms are alleviated by nothing, the symptoms are aggravated by nothing. Severity of symptoms: At their worst the symptoms were moderate. Presents to the ED with a lightheadedness, nausea starting this morning. Patient had a recent admission to the ICU for pyelonephritis and hypotension. Patient is concerned the symptoms have returned. Denies other acute complaints at this time, symptoms are moderate severity, no other aggravating or alleviating factors.. 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 - Social history:: Smoking status: Patient denies any tobacco usage or history of. - Family history:: not pertinent. ROS: 16:54 Constitutional: Negative for fever, chills, and weight loss, Eyes: Negative for injury, rt pain, redness, and discharge, ENT: Negative for injury, pain, and discharge, Neck: Negative for injury, pain, and swelling, Cardiovascular: Negative for chest pain, palpitations, and edema, Respiratory: Negative for shortness of breath, cough, wheezing, and pleuritic chest pain, : Negative for injury, bleeding, discharge, and swelling, MS/Extremity: Negative for injury and deformity, Skin: Negative for injury, rash, and discoloration, Neuro: Negative for headache, weakness, numbness, tingling, and seizure, Psych: Negative for depression, anxiety, suicide ideation, homicidal ideation, and hallucinations. 16:54 Abdomen/GI: Positive for nausea, Negative for abdominal pain. 16:54 Neuro: Positive for near syncope, Negative for altered mental status. Exam: 16:52 ECG was reviewed by the Attending Physician. rt 16:54 Constitutional: This is a well developed, well nourished patient who is awake, alert, rt and in no acute distress. Head/Face: Normocephalic, atraumatic. Eyes: Pupils equal round and reactive to light, extra-ocular motions intact. Lids and lashes normal. Conjunctiva and sclera are non-icteric and not injected. Cornea within normal limits. Periorbital areas with no swelling, redness, or edema. ENT: Nares patent. No nasal discharge, no septal abnormalities noted. Tympanic membranes are normal and external auditory canals are clear. Oropharynx with no redness, swelling, or masses, exudates, or evidence of obstruction, uvula midline. Mucous membranes moist. Neck: Trachea midline, no thyromegaly or masses palpated, and no cervical lymphadenopathy. Supple, full range of motion without nuchal rigidity, or vertebral point tenderness. No Meningismus. Chest/axilla: Normal chest wall appearance and motion. Nontender with no deformity. No lesions are appreciated. Cardiovascular: Regular rate and rhythm with a normal S1 and S2. No gallops, murmurs, or rubs. Normal PMI, no JVD. No pulse deficits. Respiratory: Lungs have equal breath sounds bilaterally, clear to auscultation and percussion. No rales, rhonchi or wheezes noted. No increased work of breathing, no retractions or nasal flaring. Abdomen/GI: Soft, non-tender, with normal bowel sounds. No distension or tympany. No guarding or rebound. No evidence of tenderness throughout. Skin: Warm, dry with normal turgor. Normal color with no rashes, no lesions, and no evidence of cellulitis. MS/ Extremity: Pulses equal, no cyanosis. Neurovascular intact. Full, normal range of motion. Neuro: Awake and alert, GCS 15, oriented to person, place, time, and situation. Cranial nerves II-XII grossly intact. Motor strength 5/5 in all extremities. Sensory grossly intact. Cerebellar exam normal. Normal gait. Psych: Awake, alert, with orientation to person, place and time. Behavior, mood, and affect are within normal limits. Vital Signs: 15:07 BP 112 / 79; Pulse 75; Resp 16; Temp 98.3; Pulse Ox 100% on R/A; Weight 70.76 kg; zm Height 5 ft. 4 in. (162.56 cm); 16:00 BP 102 / 70; Pulse 89; Resp 12; Pulse Ox 100% on R/A; eh3 15:07 Body Mass Index 26.78 (70.76 kg, 162.56 cm) zm MDM: 15:03 Patient medically screened. rt 16:56 Differential diagnosis: Vasovagal event, hypovolemia, dysrhythmia, sepsis. Data rt reviewed: vital signs, nurses notes, old medical records, lab test result(s), EKG, radiologic studies. ED course: Presents to the ED with a near syncopal symptoms. Symptoms are improving with IV fluids, nausea has resolved. No acute ischemic changes on the EKG, no evidence of dysrhythmia. Labs are benign, vital signs are stable, no evidence of UTI, sepsis. Patient is stable for outpatient care, discussed strict return precautions with the patient.. 03/11 14:53 Order name: COVID-19/FLU A+B/RSV; Complete Time: 16:40 snw 03/11 14:53 Order name: Urine Culture snw 03/11 14:53 Order name: Urine Drug Screen; Complete Time: 16:38 snw 03/11 14:53 Order name: Urine Microscopic Only snw 03/11 15:14 Order name: CBC with Diff; Complete Time: 16:38 rt 03/11 15:14 Order name: CMP; Complete Time: 16:38 rt 03/11 15:14 Order name: Magnesium; Complete Time: 16:38 rt 03/11 15:14 Order name: Troponin High Sensitivity; Complete Time: 16:38 rt 03/11 15:14 Order name: EKG; Complete Time: 15:15 rt 03/11 15:14 Order name: Chest Single View XRAY; Complete Time: 16:38 rt 03/11 16:07 Order name: Urine Dipstick-Ancillary; Complete Time: 16:38 EDMS 03/11 16:09 Order name: Urine Dipstick-Ancillary EDMS 03/11 14:53 Order name: Urine Dipstick-Ancillary (obtain specimen); Complete Time: 16:13 snw 03/11 14:53 Order name: Urine Test (obtain specimen); Complete Time: 16:13 [facility] 03/11 15:14 Order name: EKG - Nurse/Tech; Complete Time: 15:35 rt EC:52 Rate is 81 beats/min. Rhythm is regular, Normal Sinus Rhythm with No ectopy. QRS [place] rt is Normal. UT interval is normal. QRS interval is normal. QT interval is normal. No Q waves. T waves are Normal. No ST changes noted. Clinical impression: Normal ECG. Interpreted by me. Administered Medications: 15:50 Drug: NS 0.9% 1000 ml Route: IV; Rate: 1 bolus; Site: right antecubital; [facility] 17:00 Follow up: IV Status: Completed infusion; IV Intake: 1000ml [facility] 15:50 Drug: Zofran (Ondansetron) 4 mg Route: IVP; Site: right antecubital; [facility] 16:30 Follow up: Response: Nausea is decreased [facility] Disposition Summary: 03/11/22 16:50 Discharge Ordered Location: Home rt Problem: new rt Symptoms: have improved rt Condition: Stable rt Diagnosis - Syncope Near rt - Nausea rt Followup: rt - With: Private Physician - When: 2 - 3 days - Reason: Discharge Instructions: - Discharge Summary Sheet rt - Nausea, Adult rt - Near-Syncope rt Forms: - Medication Reconciliation Form rt - Thank You Letter rt - Antibiotic Education rt - Prescription Opioid Use rt Prescriptions: - Zofran 4 mg Oral Tablet - take 1 tablet by ORAL route every 6 hours; 18 tablet; Refills: 0, Product rt Selection Permitted Signatures: Dispatcher [employer] Twila Lowe FNP-C FNP-Tamia Sánchez, RN RN 3 Luis Velasco MD MD rt
--- NOTE | 2022-03-11 16:51 | ER ---
Nurse's Notes [facility] Name: Chantelle Hardwick Age: 31 yrs Sex: Female : 1990 Arrival Date: 03/11/2022 Time: 14:45 Bed 15 Private MD: Diagnosis: Syncope Near;Nausea Presentation: 03/11 15:00 Chief complaint: Patient states: nausea and dizziness since this morning. Had urosepsis eh3 recently and is concerned she still has an infection. Coronavirus screen: Vaccine status: Patient reports receiving the 2nd dose of the covid vaccine. Ebola Screen: No symptoms or risks identified at this time. Initial Sepsis Screen: Does the patient meet any 2 criteria? No. Patient's initial sepsis screen is negative. Does the patient have a suspected source of infection? No. Patient's initial sepsis screen is negative. Risk Assessment: Do you want to hurt yourself or someone else? Patient reports no desire to harm self or others. Onset of symptoms was March 11, 2022. 15:00 Method Of Arrival: Ambulatory eh3 15:00 Acuity: DIOMEDES 3 eh3 Triage Assessment: 15:00 General: Appears in no apparent distress. comfortable, Behavior is calm, cooperative, eh3 appropriate for age. Pain: Denies pain. EENT: No signs and/or symptoms were reported regarding the EENT system. Neuro: Level of Consciousness is awake, alert, obeys commands, Oriented to person, place, time, situation. Cardiovascular: Capillary refill < 3 seconds Patient's skin is warm and dry. Respiratory: Airway is patent Respiratory effort is even, unlabored, Respiratory pattern is regular, symmetrical. GI: Abdomen is round non-distended, Reports nausea. : No signs and/or symptoms were reported regarding the genitourinary system. Derm: No signs and/or symptoms reported regarding the dermatologic system. Musculoskeletal: No signs and/or symptoms reported regarding the musculoskeletal system. Circulation, motion, and sensation intact. Range of motion: intact in all extremities. 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 - Social history:: Smoking status: Patient denies any tobacco usage or history of. - Family history:: not pertinent. Screenin:00 Abuse screen: Denies threats or abuse. Denies injuries from another. Nutritional eh3 screening: No deficits noted. Tuberculosis screening: No symptoms or risk factors identified. Fall Risk None identified. Assessment: 15:00 Reassessment: No changes from previously documented assessment. See triage assessment. eh3 GI: Abdomen is round non-distended. 16:00 Reassessment: Patient appears in no apparent distress at this time. Patient and/or eh3 family updated on plan of care and expected duration. Pain level reassessed. Patient is alert, oriented x 3, equal unlabored respirations, skin warm/dry/pink. Vital Signs: 15:07 BP 112 / 79; Pulse 75; Resp 16; Temp 98.3; Pulse Ox 100% on R/A; Weight 70.76 kg; zm Height 5 ft. 4 in. (162.56 cm); 16:00 BP 102 / 70; Pulse 89; Resp 12; Pulse Ox 100% on R/A; eh3 15:07 Body Mass Index 26.78 (70.76 kg, 162.56 cm) ED Course: 14:45 Patient arrived in ED. as 14:57 Luis Velasco MD is Attending Physician. rt 15:00 Arm band placed on left wrist. eh3 15:00 Patient has correct armband on for positive identification. Bed in low position. Call 3 light in reach. Side rails up X2. Adult w/ patient. Client placed on continuous cardiac and pulse oximetry monitoring. NIBP monitoring applied. Door closed. Noise minimized. 15:20 Tamia Sprague, RN is Primary Nurse. eh3 15:30 Inserted saline lock: 20 gauge in right antecubital area, using aseptic technique. eh3 Blood collected. 15:35 COVID-19/FLU A+B/RSV Sent. eh3 16:04 Chest Single View XRAY In Process Unspecified. EDMS 16:17 Triage completed. eh3 16:59 No provider procedures requiring assistance completed. IV discontinued, intact, eh3 bleeding controlled, No redness/swelling at site. Pressure dressing applied. Administered Medications: 15:50 Drug: NS 0.9% 1000 ml Route: IV; Rate: 1 bolus; Site: right antecubital; 3 17:00 Follow up: IV Status: Completed infusion; IV Intake: 1000ml 3 15:50 Drug: Zofran (Ondansetron) 4 mg Route: IVP; Site: right antecubital; 3 16:30 Follow up: Response: Nausea is decreased 3 Medication: 16:59 VIS not applicable for this client. 3 Intake: 17:00 IV: 1000ml; Total: 1000ml. 3 Outcome: 16:50 Discharge ordered by . rt 17:14 Discharged to home ambulatory, with family. 3 17:14 Condition: stable 17:14 Discharge instructions given to patient, Instructed on discharge instructions, follow up and referral plans. medication usage, Demonstrated understanding of instructions, follow-up care, medications, Prescriptions given X 1. 17:14 Patient left the ED. 3 Signatures: Dispatcher [employer] Kitty Daniels Erin, RN RN 3 Rachel Archuleta Ryan, MD MD rt
[2022-03-11 22:15] VITALS: TEMP 98.3; O2SAT 100
[2022-03-11 22:16] VITALS: BP 102/70
--- NOTE | 2022-03-13 15:00 | EKG ---
Test Date: 2022-03-11 Test Time: 15:31:06 Young Adult Librarian: MEASUREMENT RESULTS: Intervals: Rate: 81 PA: 150 QRSD: 74 QT: 394 QTc: 457 [place]: P: 59 PA: 150 QRS: 59 T: 30 INTERPRETIVE STATEMENTS: Normal sinus rhythm Normal ECG Compared to ECG 03/11/2022 15:28:13 No significant changes Electronically Signed On 03-13-22 14:56:15 BISQUE FINISHER by Mendoza Su
--- NOTE | 2022-03-13 15:01 | EKG ---
Test Date: 2022-03-11 Test Time: 15:28:13 Manager Revenue: MEASUREMENT RESULTS: Intervals: Rate: 0 CA: QRSD: 0 QT: 0 QTc: 0 [place]: P: CA: QRS: 0 T: 0 INTERPRETIVE STATEMENTS: No QRS complexes found, no ECG analysis possible No previous ECG available for comparison Electronically Signed On 03-13-22 14:56:18 NEONATAL DOCTOR by Mendoza Su
== END 2022-03-11 17:14 | disposition home or self-care (01) ==
LOC: ER 14:44
DX: R55 Syncope and collapse (principal); R11.0 Nausea; Z20.822 Contact with and (suspected) exposure to COVID-19
CPT/HCPCS: 96361; 93005 ×2; 87088; 85025; 87086; 36415; 83735; 84484; 80053; 0241U; 80307; 71045; 96374; 99284; J7030; J2405; 81003; 81015

== ENCOUNTER → 2023-04-15 | Emergency (ER) | payer BC ==
[~2023-04-15] MED LIST: AMOX/K CLAV 875 MG TAB ONE; CEFTRIAXONE 1000 MG/VIAL ONE; DIPHENHYDRAMINE 50 MG/ML VIAL ONE; HYDROMORPHONE HCL 0.5 MG/0.5 ML INJ ONE; METOCLOPRAMIDE 10 MG/2mL INJ ONE; NA CHLORIDE 0.9% 1,000 ML ONE; NA CHLORIDE 0.9% 500 ML ONE; NS KCL 20MEQ 1,000 ML IV ONE; ONDANSETRON 4 MG/2 ML VIAL ONE
[2023-04-15 07:37] LABS: Absolute Lymphocytes (CBC) 1.4 K/uL (0.7-4.9); Hematocrit 37.3 % (36.0-45.0); Lymphocytes % 25.8 % (15.3-44.8); MPV 7.4 fL (7.6-11.3); Platelets 235 thou/uL (152-406); RBC Red Blood Cell Count 4.19 M/uL (3.86-4.86)
[2023-04-15 07:39] LABS: Urine Bilirubin NEGATIVE (Negative); Urine Blood Negative (Negative); Urine Clarity Clear (Clear); Urine Color Light-Yellow (Yellow); Urine Glucose NEGATIVE (Negative); Urine Protein NEGATIVE (Negative); Urine Urobilinogen Normal (Normal); Urine pH 6.5 (5.0-7.0)
[2023-04-15 07:58] LABS: Albumin 2.8 g/dL (3.4-5.0); Bilirubin Total 0.3 mg/dL (0.2-1.0); Potassium 3.4 mEq/L (3.5-5.1); Protein, Total 7.2 g/dL (6.4-8.2)
--- NOTE | 2023-04-15 08:41 | RAD REPORT ---
EXAM DESCRIPTION: CT - Head Brain Wo Cont - 04/15/2023 8:11 am CLINICAL HISTORY: Headache COMPARISON: none TECHNIQUE: Computed axial tomography of the head was obtained. IV contrast was not requested. The pa tient's abdomen was shielded All CT scans are performed using dose optimization technique as appropriate and may include automated exposure control or mA/KV adjustment according to patient size. FINDINGS: An intracranial bleed is not seen The ventricles are normal in caliber No significant hypodense areas within the brain visualized No extra-axial fluid collection is noted. Marked ethmoid, moderate maxillary and mild frontal and sphenoid sinusitis IMPRESSION: No acute intracranial abnormality is seen Marked ethmoid, moderate maxillary and mild frontal and sphenoid sinusitis If patient's symptoms persist MRI of the brain would be recommended
--- NOTE | 2023-04-15 09:22 | RAD REPORT ---
EXAM DESCRIPTION: Krystle Angio04/15/2023 9:09 am CLINICAL HISTORY: Headache COMPARISON: None TECHNIQUE: 100 cc Isovue 370 administered intravenously. The ordering physician felt that the benefi ts of diagnosing significant pathology outweigh the very small risks to the fetus. Signed informed co nsent was obtained explaining the risks of the procedure to the fetus. Patient's abdomen was shielded CT angiogram of the neck was obtained. 3D MIPS reconstruction performed. All CT scans are performed using dose optimization technique as appropriate and may include automated exposure control or mA/KV adjustment according to patient size. FINDINGS: Common carotid, internal carotid and external carotid arteries are normal Vertebral arteries unremarkable No dissection is seen. No high-grade stenosis IMPRESSION: Unremarkable exam [place] crieria Mild stenosis 0 to 49 % Moderate stenosis 50-69% Severe stenosis 70-99%
--- NOTE | 2023-04-15 09:29 | RAD REPORT ---
EXAM DESCRIPTION: CTHead angio04/15/2023 9:17 am CLINICAL HISTORY: Headache COMPARISON: none TECHNIQUE: 100 cc Isovue 370 administered intravenously. The ordering physician felt that the benefi ts of diagnosing significant pathology outweigh the very small risks to the fetus. Signed informed co nsent was obtained explaining the risks of the procedure to the fetus. Patient's abdomen was shielded CT angiogram of the head was obtained. 3D MIPS reconstruction performed. All CT scans are performed using dose optimization technique as appropriate and may include automated exposure control or mA/KV adjustment according to patient size. FINDINGS: The distal internal carotid, basilar, anterior cerebral, middle cerebral and posterior cer ebral arteries do not demonstrate a significant stenosis An aneurysm is not seen No large vessel occlusion IMPRESSION: No significant vascular abnormality is displayed
--- NOTE | 2023-04-15 11:36 | ER ---
Nurse's Notes [facility] Name: Chantelle Hardwick Age: 32 yrs Sex: Female : 1990 Arrival Date: 04/15/2023 Time: 06:57 Bed 6 Private MD: Diagnosis: Acute ethmoidal sinusitis;Acute maxillary sinusitis;Acute frontal sinusitis;16 weeks gestation of ;Headache;Vomiting;Hypokalemia;Dehydration Presentation: 04/15 07:06 Coronavirus screen: Vaccine status: Patient reports receiving the 2nd dose of the covid mb9 vaccine. Ebola Screen: No symptoms or risks identified at this time. Initial Sepsis Screen: Does the patient meet any 2 criteria? No. Patient's initial sepsis screen is negative. Does the patient have a suspected source of infection? No. Patient's initial sepsis screen is negative. Risk Assessment: Do you want to hurt yourself or someone else? Patient reports no desire to harm self or others. Onset of symptoms was April 15, 2023. 07:06 Acuity: DIOMEDES 3 mb9 07:06 Method Of Arrival: Wheelchair mb9 07:09 Chief complaint: Patient states: Worst headache ever X 3 days. Pt c/o pain to the right mb9 side of head/scalp. Took Tylenol at 1700 yesterday - reports no relief. N/V since last night. pt 16 wks . Triage Assessment: 07:09 Headache History: Denies prior headaches. General: Appears in no apparent distress. ld1 uncomfortable, Behavior is cooperative, appropriate for age, crying. Pain: Complains of pain in right parietal area Pain does not radiate. Pain currently is 9 out of 10 on a pain scale. Quality of pain is described as sharp, shooting, throbbing, Pain began 2-3 days ago. Is continuous, Also complains of nausea. EENT: No signs and/or symptoms were reported regarding the EENT system. Neuro: Level of Consciousness is awake, alert, obeys commands, Oriented to person, place, time, situation. Cardiovascular: Capillary refill < 3 seconds Patient's skin is warm and dry. Respiratory: Airway is patent Respiratory effort is even, unlabored. GI: Abdomen is flat, non-distended. : No signs and/or symptoms were reported regarding the genitourinary system. Derm: No signs and/or symptoms reported regarding the dermatologic system. Musculoskeletal: No signs and/or symptoms reported regarding the musculoskeletal system. FARM HAND: 07:08 LMP 12/2022, unknown mb9 09:30 2, Full Term 1, Premature 0, 0, Living 0, unknown darlene Historical: - Allergies: 07:05 NKA; mb9 - Home Meds: 07:05 control [Active]; MOUNJERO [Active]; mb9 - PMHx: 07:05 Esophagitis; gastritis; hiatal hernia; mb9 - PSHx: 07:05 section; Cholecystectomy; mb9 - Immunization history:: Adult Immunizations up to date. - Social history:: Smoking status: Patient denies any tobacco usage or history of. - Family history:: not pertinent. Screenin:05 [facility] ED Fall Risk Assessment (Adult) History of falling in the last 3 months, mb9 including since admission No falls in past 3 months (0 pts) Confusion or Disorientation No (0 pts) Intoxicated or Sedated No (0 pts) Impaired Gait No (0 pts) Mobility Assist Device Used No (0 pt) Altered Elimination No (0 pt) Score/Fall Risk Level 0 - 2 = Low Risk Oriented to surroundings, Maintained a safe environment, Educated pt \T\ family on fall prevention, incl call for assistance when getting out of bed. Abuse screen: Denies threats or abuse. Nutritional screening: No deficits noted. Tuberculosis screening: No symptoms or risk factors identified. Assessment: 07:10 Reassessment: See triage assessment. Pain: Complains of pain in scalp and right ld1 parietal area. 08:15 Reassessment: ERP at bedside discussing care. Pt reports no headache relief so far. ld1 Vital Signs: 07:06 BP 127 / 81; Pulse 103; Resp 18; Pulse Ox 100% on R/A; Weight 74.84 kg; Height 5 ft. 5 mb9 in. ; 07:10 BP 113 / 82; ld1 07:51 BP 99 / 57; Pulse 103; Resp 18; Pulse Ox 97% on R/A; ld1 08:31 Pulse 82; Resp 18; Pulse Ox 100% on R/A; Pain 8/10; ld1 09:31 BP 93 / 56; Pulse 74; Resp 18; Pulse Ox 99% on R/A; ld1 10:26 BP 93 / 64; Pulse 68; Resp 18; Pulse Ox 98% on R/A; ld1 11:09 BP 103 / 87; Pulse 86; Resp 18; Pulse Ox 100% on R/A; ld1 07:06 Body Mass Index 27.46 (74.84 kg, 165.1 cm) mb9 08:31 Pain Scale: Adult ld1 Vitals: 07:34 Heart Tones: 110. mb4 Usha Coma Score: 09:40 Eye Response: spontaneous(4). Motor Response: obeys commands(6). Verbal Response: darlene oriented(5). Total: 15. ED Course: 06:57 Patient arrived in ED. rg4 07:05 Arm band placed on. mb9 07:07 Triage completed. mb9 07:07 Placed in gown. Bed in low position. Call light in reach. Side rails up X 1. Client mb9 placed on continuous cardiac and pulse oximetry monitoring. NIBP monitoring applied. Door closed. Noise minimized. Warm blanket given. 07:08 No provider procedures requiring assistance completed. Inserted saline lock: 20 gauge mb9 in right antecubital area, using aseptic technique. 07:09 Alicia Salmeron, RN is Primary Nurse. ld1 07:13 Nate Brooke MD is Attending Physician. darlene 07:32 Comprehensive Metabolic Panel Sent. mb9 07:32 CBC with Diff Sent. mb9 07:32 Urinalysis w/ reflexes Sent. mb9 08:13 CT Head Brain wo Cont In Process Unspecified. EDMS 09:11 CT Head Angio: shield In Process Unspecified. EDMS 09:11 CT Neck Angio: shield In Process Unspecified. EDMS 11:36 Santhosh Urias MD is Referral Physician. darlene 11:36 Mari Ford MD is Referral Physician. darlene Administered Medications: 10:29 Discontinued: ns 0.9% 1000 ml IV at 125 ml/hr continuous darlene 07:40 Drug: NS 0.9% IV 500 ml IV at bolus once Route: IV; Rate: bolus; Site: right mb9 antecubital; 07:40 Drug: NS 0.9% IV 1000 ml IV at 125 ml/hr continuous Route: IV; Rate: 125 ml/hr; Site: mb9 right antecubital; 07:50 Drug: HYDROmorphone IVP 0.5 mg IVP once Route: IVP; Site: right antecubital; ld1 07:51 Drug: diphenhydrAMINE IVP 50 mg IVP once Route: IVP; Site: right antecubital; ld1 07:51 Drug: metoCLOPramide IVP 10 mg IVP once; over 1 to 2 minutes Route: IVP; Site: right ld1 antecubital; 08:25 Not Given (Duplicate Order): hydromorphone0.5 mg IVP once darlene 08:25 CANCELLED (Duplicate Order): ondansetron 4 mg IVP once; over 2 minutes darlene 08:30 Drug: Ondansetron IVP 4 mg IVP once; over 2 minutes Route: IVP; Site: right antecubital;ld1 08:30 Drug: HYDROmorphone IVP 1 mg IVP once Route: IVP; Site: right antecubital; ld1 09:31 Drug: NS 0.9% IV 1000 ml IV at 1 bolus Per protocol; 1000 mL bolus Route: IV; Rate: 1 ld1 bolus; Site: right antecubital; 09:31 Drug: Rocephin IV 1 grams IV at per protocol once; Given slow IV push per pharmacy ld1 instructions Route: IV; Rate: per protocol; Site: right antecubital; 09:31 Drug: Amoxicillin-Clavulanate PO 875 mg PO once Route: PO; ld1 10:36 Drug: NS 0.9% IV 500 ml IV at bolus once Route: IV; Rate: bolus; Site: right ld1 antecubital; 10:36 Drug: NS 0.9% with KCl IV 20 mEq/L 1000 ml IV at 500 ml/hr continuous Route: IV; Rate: ld1 500 ml/hr; Site: right antecubital; Medication: 07:08 VIS not applicable for this client. mb9 Outcome: 11:36 Discharge ordered by . [facility] 12:31 Patient left the ED. hb Signatures: Dispatcher [employer] EDNate Pat MD MD cha Baxter, Heather, RN RN Lety Ceja4 Valerie Young4 Alicia Salmeron RN RN ld1 Stephanie Nolan RN RN mb9 Corrections: (The following items were deleted from the chart) 07:07 07:06 BP 127 / 81; Pulse 103bpm; Resp 18bpm; Pulse Ox 100% RA; 68.04 kg; Height 5 ft. 5 mb9 in.; BMI: 24.9; mb9 07:15 07:09 Chief complaint: Patient states: Worst headache ever X 3 days. Pt c/o pain to the mb9 right side of head/scalp. Took Tylenol at 1700 yesterday - reports no relief. N/V since last night. ld1
--- NOTE | 2023-04-15 11:36 | EDPHYS ---
Physician Documentation [facility] Name: Chantelle Hardwick Age: 32 yrs Sex: Female : 1990 Arrival Date: 04/15/2023 Time: 06:57 Bed 6 Private MD: ED Physician Nate Brooke HPI: 04/15 09:29 This 32 yrs old Female presents to ER via Wheelchair with complaints of darlene Dizziness, Headache, Worst Ever, Nausea, . 09:29 The patient presents with dizziness. Onset: The symptoms/episode began/occurred 3 darlene day(s) ago. 09:30 The patient complains of pain to the top of head, forehead, right jainism, right frontal darlene area, right side of the back of head, right temporal area and right occipital area. The patient describes the headache as aching. Onset: The symptoms/episode began/occurred 3 day(s) ago. The patient presents to the emergency department with. The estimated gestational age is 16 weeks. course: care: private OB physician. Previous pregnancies: in previous pregnancies patient has had vaginal delivery. 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 - Social history:: Smoking status: Patient denies any tobacco usage or history of. - Family history:: not pertinent. ROS: 09:30 Constitutional: Negative for fever, chills, and weight loss, Eyes: Negative for injury, darlene pain, redness, and discharge, ENT: Negative for injury, pain, and discharge, Neck: Negative for injury, pain, and swelling, Cardiovascular: Negative for chest pain, palpitations, and edema, Respiratory: Negative for shortness of breath, cough, wheezing, and pleuritic chest pain, Abdomen/GI: Negative for abdominal pain, nausea, vomiting, diarrhea, and constipation, Back: Negative for injury and pain, : Negative for injury, bleeding, discharge, and swelling, MS/Extremity: Negative for injury and deformity, Skin: Negative for injury, rash, and discoloration, Psych: Negative for depression, anxiety, suicide ideation, homicidal ideation, and hallucinations, Allergy/Immunology: Negative for hives, rash, and allergies, Endocrine: Negative for neck swelling, polydipsia, polyuria, polyphagia, and marked weight changes, Hematologic/Lymphatic: Negative for swollen nodes, abnormal bleeding, and unusual bruising, 09:30 Neuro: Positive for headache, Exam: :30 Constitutional: This is a well developed, well nourished patient who is awake, alert, darlene and in no acute distress. Head/Face: Normocephalic, atraumatic. Eyes: Pupils equal round and reactive to light, extra-ocular motions intact. Lids and lashes normal. Conjunctiva and sclera are non-icteric and not injected. Cornea within normal limits. Periorbital areas with no swelling, redness, or edema. Neck: Trachea midline, no thyromegaly or masses palpated, and no cervical lymphadenopathy. Supple, full range of motion without nuchal rigidity, or vertebral point tenderness. No Meningismus. Chest/axilla: Normal chest wall appearance and motion. Nontender with no deformity. No lesions are appreciated. Cardiovascular: Regular rate and rhythm with a normal S1 and S2. No gallops, murmurs, or rubs. Normal PMI, no JVD. No pulse deficits. Respiratory: Lungs have equal breath sounds bilaterally, clear to auscultation and percussion. No rales, rhonchi or wheezes noted. No increased work of breathing, no retractions or nasal flaring. Abdomen/GI: Soft, non-tender, with normal bowel sounds. No distension or tympany. No guarding or rebound. No evidence of tenderness throughout. Back: No spinal tenderness. No costovertebral tenderness. Full range of motion. Skin: Warm, dry with normal turgor. Normal color with no rashes, no lesions, and no evidence of cellulitis. MS/ Extremity: Pulses equal, no cyanosis. Neurovascular intact. Full, normal range of motion. Neuro: Awake and alert, GCS 15, oriented to person, place, time, and situation. Cranial nerves II-XII grossly intact. Motor strength 5/5 in all extremities. Sensory grossly intact. Cerebellar exam normal. Normal gait. Psych: Awake, alert, with orientation to person, place and time. Behavior, mood, and affect are within normal limits. 09:30 Head/face: Exam is negative for acute changes, obvious evidence of injury or deformity, abrasion(s), grove signs, contusion, deformity, ecchymosis, erythema, hematoma, raccoon eyes, swelling, tenderness, Sinus tenderness, that is mild, is located over the right frontal sinus, left frontal sinus, right maxillary sinus and left maxillary sinus, 09:30 Neck: ROM/movement: is normal, is supple, without pain, no range of motions limitations, no meningismus, no nuchal rigidity, negative Brudzinski's sign, negative Kernig's sign, limited range of motion, is not appreciated, Meningeal signs: are not present, Kernig's sign is negative, Brudzinski's sign is negative, Vital Signs: 07:06 BP 127 / 81; Pulse 103; Resp 18; Pulse Ox 100% on R/A; Weight 74.84 kg; Height 5 ft. 5 mb9 in. ; 07:10 BP 113 / 82; ld1 07:51 BP 99 / 57; Pulse 103; Resp 18; Pulse Ox 97% on R/A; ld1 08:31 Pulse 82; Resp 18; Pulse Ox 100% on R/A; Pain 8/10; ld1 09:31 BP 93 / 56; Pulse 74; Resp 18; Pulse Ox 99% on R/A; ld1 10:26 BP 93 / 64; Pulse 68; Resp 18; Pulse Ox 98% on R/A; ld1 11:09 BP 103 / 87; Pulse 86; Resp 18; Pulse Ox 100% on R/A; ld1 07:06 Body Mass Index 27.46 (74.84 kg, 165.1 cm) mb9 08:31 Pain Scale: Adult ld1 [place] Coma Score: 09:40 Eye Response: spontaneous(4). Motor Response: obeys commands(6). Verbal Response: darlene oriented(5). Total: 15. MDM: 07:13 Patient medically screened. darlene 09:40 Differential diagnosis: cerebral abscess, cluster headache, cerebral vascular accident, darlene epidural hematoma, hyponatremia, intracerebral hemorrhage, sinusitis, subarachnoid bleed, subdural hematoma, temporal arteritis, tension headache, trigeminal neuralgia, vasomotor headache. Differential diagnosis: CVA, generalized weakness, head injury, hypovolemia, idiopathic dizziness, vertigo. Data reviewed: vital signs, nurses notes, lab test result(s), radiologic studies, CT scan. Consideration of Admission/Observation Escalation of care including admission/observation considered. I considered the following discharge prescriptions or medication management in the emergency department Medications were administered in the Emergency Department. See MAR. Independent interpretation of the following test(s) in the Emergency Department CT Scan: My interpretation is CT HEAD, CTA HEAD AND NECK. Test considered but Not performed: MRI: NO MRI BRAIN. 04/15 07:20 Order name: CBC with Diff; Complete Time: 07:49 [facility] 04/15 07:20 Order name: Comprehensive Metabolic Panel; Complete Time: 09:10 [facility] 04/15 07:21 Order name: Urinalysis w/ reflexes; Complete Time: 07:41 [facility] 04/15 07:41 Order name: CT Head Brain wo Cont; Complete Time: 09:10 [facility] 04/15 08:26 Order name: CT Head Angio: shield; Complete Time: 10:04 04/15 08:26 Order name: CT Neck Angio: shield; Complete Time: 09:25 [facility] 04/15 07:20 Order name: Oxygen; Complete Time: 07:26 [facility] 04/15 07:21 Order name: FHT's; Complete Time: 07:26 [facility] 04/15 10:06 Order name: PO challenge: JUICE; Complete Time: 10:09 [facility] Administered Medications: 10:29 Discontinued: ns 0.9% 1000 ml IV at 125 ml/hr continuous darlene 07:40 Drug: NS 0.9% IV 500 ml IV at bolus once Route: IV; Rate: bolus; Site: right mb9 antecubital; 07:40 Drug: NS 0.9% IV 1000 ml IV at 125 ml/hr continuous Route: IV; Rate: 125 ml/hr; Site: mb9 right antecubital; 07:50 Drug: HYDROmorphone IVP 0.5 mg IVP once Route: IVP; Site: right antecubital; ld1 07:51 Drug: diphenhydrAMINE IVP 50 mg IVP once Route: IVP; Site: right antecubital; ld1 07:51 Drug: metoCLOPramide IVP 10 mg IVP once; over 1 to 2 minutes Route: IVP; Site: right ld1 antecubital; 08:25 Not Given (Duplicate Order): hydromorphone0.5 mg IVP once darlene 08:25 CANCELLED (Duplicate Order): ondansetron 4 mg IVP once; over 2 minutes darlene 08:30 Drug: Ondansetron IVP 4 mg IVP once; over 2 minutes Route: IVP; Site: right antecubital;ld1 08:30 Drug: HYDROmorphone IVP 1 mg IVP once Route: IVP; Site: right antecubital; ld1 09:31 Drug: NS 0.9% IV 1000 ml IV at 1 bolus Per protocol; 1000 mL bolus Route: IV; Rate: 1 ld1 bolus; Site: right antecubital; 09:31 Drug: Rocephin IV 1 grams IV at per protocol once; Given slow IV push per pharmacy ld1 instructions Route: IV; Rate: per protocol; Site: right antecubital; 09:31 Drug: Amoxicillin-Clavulanate PO 875 mg PO once Route: PO; ld1 10:36 Drug: NS 0.9% IV 500 ml IV at bolus once Route: IV; Rate: bolus; Site: right ld1 antecubital; 10:36 Drug: NS 0.9% with KCl IV 20 mEq/L 1000 ml IV at 500 ml/hr continuous Route: IV; Rate: ld1 500 ml/hr; Site: right antecubital; Disposition Summary: 04/15/23 11:36 Discharge Ordered Notes: Location: Home darlene Problem: new darlene Symptoms: have improved darlene Condition: Stable darlene Diagnosis - Acute ethmoidal sinusitis darlene - Acute maxillary sinusitis darlene - Acute frontal sinusitis darlene - 16 weeks gestation of darlene - Headache darlene - Vomiting darlene - Hypokalemia darlene - Dehydration darlene Followup: darlene - With: Private Physician - When: 2 - 3 days - Reason: Recheck today's complaints, Continuance of care, Re-evaluation by your physician Followup: darlene - With: Santhosh Urias MD - When: 2 - 3 days - Reason: Recheck today's complaints, Re-evaluation by your physician Followup: darlene - With: Mari Ford MD - When: 2 - 3 days - Reason: Recheck today's complaints, Re-evaluation by your physician Discharge Instructions: - Discharge Summary Sheet darlene - Dehydration, Adult darlene - Potassium Content of Foods darlene - General Headache Without Cause darlene - Care darlene - Sinusitis, Adult darlene - Sinusitis, Adult, [id number] darlene - General Headache Without Cause, [id number] darlene - Vomiting, Adult darlene Forms: - Medication Reconciliation Form darlene - Thank You Letter darlene - Antibiotic Education darlene - Prescription Opioid Use darlene - Patient Portal Instructions darlene - Leadership Thank You Letter darlene - Work release form eb Prescriptions: - Diclegis 10-10 mg Oral tablet, delayed release (enteric coated) - take 1 tablet ORAL route 3 times per day; 50 tablet; Refills: 0, Product [facility] Selection Permitted - acetaminophen-codeine 300-30 mg Oral tablet - take 2 tablet ORAL route every 6 hours as needed for pain; 20 tablet; Refills: darlene 0, Product Selection Permitted - ondansetron 4 mg Oral Tablet,disintegrating - take 1 tablet ORAL route every 6-8 hours for 5 days; 20 tablet; Refills: 0, [facility] Product Selection Permitted - Augmentin 875-125 mg Oral Tablet - take 1 tablet ORAL route every 12 hours for 10 days; 20 tablet; Refills: 0, [facility] Product Selection Permitted Signatures: Dispatcher [employer] Nate Yañez MD MD cha Sims, Lauren RN RN ld1 Stephanie Nolan RN RN mb9 Corrections: (The following items were deleted from the chart) 08:25 08:25 Ondansetron IVP 4 mg IVP once; over 2 minutes ordered. darlene colon
[2023-04-15 12:56] VITALS: O2SAT 100
[2023-04-15 13:11] VITALS: BP 103/87
== END ==
LOC: ER 06:57
DX: O99.512 Diseases of the respiratory system complicating pregnancy, second trimester (principal); J01.20 Acute ethmoidal sinusitis, unspecified; J01.10 Acute frontal sinusitis, unspecified; J01.00 Acute maxillary sinusitis, unspecified; O99.282 Endocrine, nutritional and metabolic diseases complicating pregnancy, second trimester; E86.0 Dehydration; E87.6 Hypokalemia; R51.9 Headache, unspecified; O21.9 Vomiting of pregnancy, unspecified; Z3A.16 16 weeks gestation of pregnancy
CPT/HCPCS: 85025; 36415; 81003; 80053; 70450; 70496; 70498; 96375; 96374; 99284; Q9967; J2765; J1200; J1170 ×3; J2405; J7040; J7030 ×2; J0696; J3480